=== PATIENT | female | born 1965 | race Caucasian/White ===

== ENCOUNTER → 2020-12-07 09:45 | Outpatient (BNVA) | payer OTHER, SELFPAY | PROVIDERS: PCP Internal Medicine; Visit Provider Physician Assistant ==

== ENCOUNTER → 2020-12-13 07:25 | Outpatient (BNVA) | payer OTHER, SELFPAY | PROVIDERS: PCP Internal Medicine; Visit Provider Surgery ==

== ENCOUNTER 2020-12-15 10:41 | Outpatient (REF) | payer OTHER, SELFPAY ==
--- NOTE | 2020-12-15 10:52 | ECG_ITS ---
Test Reason : OBESITY Blood Pressure : / mmHG Vent. Rate : 073 BPM Atrial Rate : 073 BPM P-R Int : 144 ms QRS Dur : 090 ms QT Int : 424 ms P-R-T Axes : 052 -05 042 degrees QTc Int : 467 ms Normal sinus rhythm Possible Left atrial enlargement Borderline ECG No previous ECGs available Referred By: Gm Mcdowell Electronically Signed By:Washington Wiseman
[2020-12-15 11:43] LABS: MANUAL DIFF FLAG NO
[2020-12-15 11:48] LABS: Basophils Percent Auto 0.3 % (0-2); Eosinophils Absolute Auto 0.1 X10*3/uL (0.0-0.4); Eosinophils Percent Auto 0.6 % (0-4); Hematocrit 44.6 % (37-47); Hemoglobin 14.1 g/dl (12.0-16.0); Imm Gran Abs Auto 0.03 X10*3/uL (0.00-0.03); Imm Gran Pct Auto 0.3 % (0.0-0.4); Lymphocytes Absolute Auto 0.8 X10*3/uL (1.2-4.9); Lymphocytes Percent Auto 8.3 % (20-40); Mean Corpuscular HGB Conc 31.6 g/dl (31.0-35.0); Mean Corpuscular Hemoglobin 28.7 pg (27.0-33.0); Mean Corpuscular Volume 90.8 fL (80-98); Mean Platelet Volume 10.5 fL (9.4-12.3); Monocytes Absolute Auto 0.5 X10*3/uL (0.1-1.2); Monocytes Percent Auto 5.5 % (2-11); Platelet Count 321 X10*3/uL (160-400); Red Blood Count 4.91 X10*6/uL (4.20-5.50); Red Cell Distribution Width 12.7 % (11.0-16.0); White Blood Count 9.4 X10*3/uL (4.8-10.8)
[2020-12-15 11:58] LABS: Estimated Average Glucose 94 mg/dL; Hemoglobin A1c % 4.9 %
[2020-12-15 12:19] LABS: Alanine Aminotransferase 28 U/L (0-31); Albumin Level 4.6 g/dL (3.5-5.0); Alkaline Phosphatase 102 U/L (39-117); Anion Gap 15 (12-20); Aspartate Amino Transferase 21 U/L (5-31); Bilirubin Total 0.7 mg/dL (0.0-1.0); Blood Urea Nitrogen 17 mg/dL (9-16); C Reactive Protein 0.54 mg/dL (< or = 0.50); Calcium 10.2 mg/dL (8.4-10.2); Carbon Dioxide 29 mmol/L (22-29); Chloride 103 mmol/L (96-108); Cholesterol 265 mg/dL; Estimated Glomerular Filt Rate > 60; Glucose Random 78 mg/dL (60-115); HDL Cholesterol 67 mg/dL; Iron 95 mcg/dL (30-160); LDL Cholesterol Calculated 170 mg/dl; Percent Iron Saturation 28 % (15-50); Potassium 4.8 mmol/L (3.3-5.1); Sodium 142 mmol/L (135-145); Total Iron Binding Capacity 336 mcg/dL (228-428); Total Protein 7.5 g/dL (6.5-8.0); Triglycerides 142 mg/dL; Unsaturated Iron Binding 241 ug/dL
[2020-12-15 12:40] LABS: Ferritin 344 ng/mL (10-250); TSH reflex Free T4 2.39 uIU/mL (0.32-4.0); Vitamin D 25-OH Total 27.4 ng/mL (>30)
[2020-12-15 12:46] LABS: Folate 6.4 ng/mL (> or = 4.0); Vitamin B12 1689 pg/mL (200-900)
[2020-12-16 13:42] LABS: H Pylori Breath Test DETECTED (NOT DETECTED)
[2020-12-18 14:56] LABS: Insulin Level Total 15.1 uIU/mL
[2020-12-18 15:11] LABS: Calcium (PTHI) 10.1 mg/dL (8.6-10.4); PTHI 39 pg/mL (14-64)
[2020-12-19 06:30] LABS: Zinc 69 mcg/dL (60-130)
[2020-12-20 19:16] LABS: Vitamin A 56 mcg/dL (38-98)
[2020-12-21 12:52] LABS: Vitamin B1 7 nmol/L (8-30)
== END 2020-12-15 10:42 | disposition home or self-care (01) ==
LOC: HO.LAB 10:41
PROVIDERS: PCP Internal Medicine; Visit Provider Surgery
DX: E66.01 Morbid (severe) obesity due to excess calories (principal); E78.5 Hyperlipidemia, unspecified; I10 Essential (primary) hypertension; J45.909 Unspecified asthma, uncomplicated
CPT/HCPCS: 36415; 80053; 80061; 82306; 82607; 82728; 82746; 83013; 83036; 83525; 83540; 83970; 84425; 84443; 84590; 84630; 85025; 86140; 93005; 99211

== ENCOUNTER 2021-01-11 08:30 | Outpatient (REF) | payer OTHER, SELFPAY ==
--- NOTE | ~2021-01-11 | US_ITS ---
EXAMINATION: US COMPLETE ABDOMEN WITH LIVER ELASTOGRAPHY CLINICAL INFORMATION: Bariatric service evaluation. E66.01. COMPARISON: None. TECHNIQUE: Real-time imaging of the abdominal viscera. Noninvasive ultrasound liver fibrosis assessment is performed using Delroy ElastPQ point quantification shear wave elastography (pSWE) with a C5-2 MHz transducer. Multiple elastography samples are obtained. FINDINGS: PANCREAS: Pancreas obscured by bowel gas and not imaged. ABDOMINAL AORTA: The proximal, middle, and distal aortic segments are normal in caliber. INFERIOR VENA CAVA: Visualized portions are normal. LIVER: The liver is normal in size and smooth in contour. There is increased hepatic parenchymal echogenicity suggesting hepatic steatosis. There is no definite hepatic parenchymal lesion and no intrahepatic ductal dilatation. The right lobe measures 14.5 cm in length. The left lobe measures 11.8 cm in length. Portal flow is towards the liver (hepatopetal). Shear wave liver elastography median stiffness is 1.27 m/s (reference: normal median stiffness is 1.3 m/s or less). IQR/median stiffness to assess sampling precision is 0.13 (reference: good quality data set is IQR/median stiffness of 0.15 or less). GALLBLADDER: Remote cholecystectomy, 1993. COMMON BILE DUCT: Common duct not visualized, obscured by bowel gas. RIGHT KIDNEY: Normal. No hydronephrosis. No renal calculi or focal parenchymal lesions. The kidney measures 11.1 cm in maximum dimension. LEFT KIDNEY: Normal. No hydronephrosis. No renal calculi or focal parenchymal lesions. The kidney measures 11.7 cm in maximum dimension. SPLEEN: Normal. The spleen measures 11.6 cm in maximum dimension. FREE FLUID: None. US/US abdomen comp w elastography IMPRESSION: 1. Increased hepatic parenchymal echogenicity consistent with hepatic steatosis. 2. Liver elastography: Measurements are consistent with a high probability of normal liver stiffness. 3. Prior cholecystectomy. Pancreas and common duct obscured by bowel gas and not imaged. No intrahepatic ductal dilatation. REFERENCE: Society of Radiologists in Ultrasound Liver Stiffness Thresholds (2020): LIVER STIFFNESS THRESHOLDS: *Liver Stiffness equal or less than 1.3 m/s: High probability of being normal. *Liver Stiffness less than 1.7 m/s: In the absence of other known clinical signs, rules out compensated advanced chronic liver disease. *Liver Stiffness 1.7-2.1 m/s: Suggestive of compensated advanced chronic liver disease but need further test for confirmation. *Liver Stiffness over 2.1 m/s: Rules in compensated advanced chronic liver disease. *Liver Stiffness over 2.4 m/s: Suggestive of clinically significant portal hypertension. QUALITY OF DATA SET: *IQR/Median value equal or less than 0.15 implies a quality data set. *IQR/Median value over 0.15 implies a poor quality data set. SIGNIFICANT CHANGE FROM PRIOR EXAM: Significant change if liver stiffness measurement is 10% or greater from prior exam. OTHER CONSIDERATIONS: The stage of liver fibrosis may be overestimated in the setting of acute hepatitis, liver inflammation, elevated liver function tests, hepatic vascular congestion, obstructive cholestasis, non-fasting state, and infiltrative diseases such as amyloidosis and lymphoma. In some patients with NAFLD, the liver stiffness thresholds for compensated advanced chronic liver disease may be lower. In causes other than viral hepatitis and NAFLD, liver stiffness thresholds are not well established.
--- NOTE | ~2021-01-11 | FL_ITS ---
EXAMINATION: FL UPPER GI SERIES CLINICAL INFORMATION: Bariatric service evaluation. E66.01 COMPARISON: None TECHNIQUE: Upper GI series is performed using fluoroscopic evaluation in addition to multiple fluoroscopic spot views. The patient is imaged both upright and prone and using both thick and thin barium sulfate along with effervescent granules. Fluoroscopy time: 1.2 minutes DAP: 17.642 Gycm2 Fluoroscopic spot images: 20 FINDINGS: There is normal esophageal motility. There is no obstruction, stricture, ulceration, or hernia. There is gastroesophageal reflux to mid thoracic esophagus only seen during water siphon test. No spontaneous reflux noted during fluoroscopy. The stomach shows no thickened folds or ulcer crater or outlet obstruction. The duodenal bulb is pliable and without ulcer crater or scarring. The post bulbar duodenum the jejunal mucosal pattern are unremarkable. FL/FL upper GI series IMPRESSION: 1. Gastroesophageal reflux to the mid thoracic esophagus only seen during water siphon test. 2. No hiatal hernia. No ulceration.
--- NOTE | ~2021-01-11 | XR_ITS ---
EXAMINATION: XR CHEST CLINICAL INFORMATION: Morbid (severe) obesity due to excess calories. COMPARISON: None TECHNIQUE: 2 views of the chest were obtained. FINDINGS: The cardiomediastinal silhouette is normal in configuration. No effusions or pneumothoraces are identified. A normal pattern of pulmonary vasculature is noted. No pulmonary consolidation is identified. Presumed cholecystectomy clips are noted within the right upper abdominal quadrant. Mild multilevel anterior endplate osteophytosis is visualized thoracic and lumbar spine is noted. XR/XR chest 2V IMPRESSION: 1. No cardiopulmonary abnormalities. Lungs clear. 2. Cholecystectomy clips in situ. 3. Mild multilevel chronic spondylosis of the visualized thoracolumbar spine.
== END 2021-01-11 08:31 | disposition home or self-care (01) ==
LOC: HO.US 08:30
PROVIDERS: PCP Internal Medicine; Visit Provider Surgery
DX: Z01.818 Encounter for other preprocedural examination (principal); E66.01 Morbid (severe) obesity due to excess calories; K21.9 Gastro-esophageal reflux disease without esophagitis; J45.909 Unspecified asthma, uncomplicated; I10 Essential (primary) hypertension; E78.5 Hyperlipidemia, unspecified
CPT/HCPCS: 71046; 74240; 76705; 76981

== ENCOUNTER 2021-01-15 08:02 | Outpatient (REF) | payer OTHER, SELFPAY ==
--- NOTE | 2021-01-15 10:42 | PFT_ITS ---
INDICATION: Asthma. SPIROMETRY: The FEV1 to FVC of 81% with an FEV1 of 2.86 L, which is 97% predicted, and an FVC of 3.52 L, which is 93% predicted. No significant response to bronchodilators noted. Maximum voluntary ventilation 116% predicted. LUNG VOLUMES: Total lung capacity 93% predicted with an expiratory reserve volume of 27% predicted, likely secondary to an elevated BMI. DIFFUSION CAPACITY: DLCO 72% predicted. COMPARISONS: None. INTERPRETATION: No obstructive nor restrictive ventilatory defects identified. No significant response to bronchodilators noted. Normal maximum voluntary ventilation. Lung volumes are within normal limits. The patient does have a mild diffusion impairment, therefore need to correct for hemoglobin. If asthma is in the differential, methacholine challenge may be helpful in assessing for hyper-reactive airways, otherwise clinical correlation warranted. MD BRUCE Zhu/MODL / [phone]
== END 2021-01-15 08:03 | disposition home or self-care (01) ==
LOC: HO.RESP 08:02
PROVIDERS: Visit Provider Surgery
DX: J45.41 Moderate persistent asthma with (acute) exacerbation (principal)
CPT/HCPCS: 94060; 94727; 94729

== ENCOUNTER 2021-01-24 07:53 | Outpatient (REF) | payer OTHER, SELFPAY ==
[2021-01-26 14:07] LABS: H Pylori Breath Test NOT DETECTED (NOT DETECTED)
== END 2021-01-24 07:54 | disposition home or self-care (01) ==
LOC: CF 07:53
PROVIDERS: Physician Assistant; Visit Provider Surgery
DX: E66.01 Morbid (severe) obesity due to excess calories (principal); Z71.3 Dietary counseling and surveillance; Z11.3 Encounter for screening for infections with a predominantly sexual mode of transmission
CPT/HCPCS: 83013; 99211

== ENCOUNTER → 2021-01-25 08:05 | Outpatient (BNVA) | payer OTHER, SELFPAY | PROVIDERS: PCP Internal Medicine; Visit Provider Dietitian, Registered | DX: E66.01 Morbid (severe) obesity due to excess calories (principal) | CPT/HCPCS: 97802 ==

== ENCOUNTER → 2021-01-30 09:28 | Outpatient (REF) | payer OTHER, SELFPAY ==
--- NOTE | 2021-01-30 09:31 | CA_ITS ---
Transthoracic Echocardiogram Patient (Last, First, Middle): Charline Stallings A Gender: Female Date of : 1965 Age: 55 Procedure Date: 01/30/2021 Procedure Type: Transthoracic Echocardiogram Location: OP Height: 170.18 cm Weight: 140.62 kg BSA: 2.44 m2 Heart Rate: bpm BP: 130 / 80 mmHg Senior Manager: Referring MD: Gm Mcdowell MD Symptoms: I10 HTN, Z01.818 PRE OP Study Quality: Good ECG Rhythm: Sinus Conclusions: - 1. Normal LV systolic function mild LVH with moderate asymmetric septal hypertrophy without obstructive physiology with grade 1 diastolic dysfunction 2. Normal cardiac valvular Doppler 3. Normal RV systolic pressure 4. No gross pericardial effusion Findings Left Ventricle Normal left ventricular size and systolic function. There is mildly increased left ventricular wall thickness. The visually estimated ejection fraction is between 60-65%. There is no dynamic left ventricular outflow tract obstruction. There is no systolic anterior motion of the mitral valve. Spectral Doppler is indicative of an impaired relaxation filling pattern. E/E prime ratio is <8, consistent with normal filling pressures. Evidence suggests grade I (mild) diastolic dysfunction. There is moderate septal asymmetric hypertrophy. Right Ventricle Normal right ventricular cavity size and systolic function. Atria The left atrium is normal in size. The right atrium is normal in size. Aortic Valve The aortic valve structure and function is likely normal. There is no aortic valve stenosis. There is no aortic valve regurgitation. Mitral Valve Normal mitral valve structure and function. There is trace mitral valve regurgitation. There is no mitral valve stenosis. Pulmonic Valve The pulmonic valve is likely normal. There is trace to mild pulmonic valve regurgitation. Tricuspid Valve Normal tricuspid valve structure. There is trace tricuspid valve regurgitation. The right ventricular systolic pressure is normal. The right ventricular systolic pressure is 16 mmHg. Normal right atrial pressure. There is no evidence of pulmonary hypertension. Great Vessels All visible segments of the aorta are normal in size. The pulmonary artery was not well visualized. Venous The inferior vena cava is normal in size and collapses greater than 50% with inspiration. Pericardium/Pleural There is no evidence of pericardial effusion. Prior Study Comparison No prior study available for comparison. Measurements 2D Linear Measurements IVSd: 2.56 0.6-0.9/0.6-1.0 cm LVIDd: 3.64 3.9-5.3/4.2-5.9 cm LVIDd Index: 1.49 2.4-3.2/2.2-3.1 cm/m2 LVIDs: 2.19 2.0-3.6 cm LVPWd: 1.10 0.7-1.1 cm Ao Root: 3.40 2.1-3.5 cm LA Diam: 4.20 2.7-3.8/3.0-4.0 cm LAIDs Index: 1.72 1.5-2.3 cm/m2 LV Mass: 336.41 67-162/88-224 g LV Mass Index: 137.87 43-95/49-115 g/m2 LVOT Diam: 2.20 3.0+(-)1.3 cm Mitral Valve MV Pk E: 0.48 MV PK A: 0.85 MV Decel Time: 163.00 E/A: 0.60 E'Lateral: 7.72 E'Medial: 6.09 E/E' Med: 7.90 E/E' Lat: 6.30 PHT: 48.00 MVA PHT: 4.58 Decel [place]: 2.96 Aortic Valve AoV Pk Blu: 1.46 AoV Mn Blu: 0.99 AoV VTI: 0.25 AoV Pk Grad: 9.00 Aov Mn Grad: 4.00 STEFANY Cont.VTI: 3.18 LVOT LVOT Pk Blu: 1.17 LVOT Mn Blu: 0.72 LVOT VTI: 0.21 LVOT Pk Grad: 5.00 LVOT Mn Grad: 3.00 LVOT Diam: 2.20 LVOT Area: 3.80 Diastolic Function MV Pk E: 0.48 MV Pk A: 0.85 E/A: 0.60 E'Medial: 6.09 E/E' Med: 7.90 E' Laterial: 7.72 E/E' Lat: 6.30 Tricuspid Valve TR Pk Blu: 1.79 TR Pk Grad: 13.00 RA Press: 3.00 RVSP: 16.00 Great Vessels Aorta Ao Root-2D: 3.40 2.0-3.7 cm Ao Asc: 3.50 2.1-3.4 cm Pulmonary Valve PV Pk Blu: 1.06 Peak PV Grad: 4.00 Updated in Other Vendor System with Status of Final Vj Bianchi MD electronically signed on 01/30/2021 12:10:10 PM with status of Final
== END ==
LOC: HO.CARD 09:28
PROVIDERS: PCP Internal Medicine; Visit Provider Surgery
DX: Z01.818 Encounter for other preprocedural examination (principal); I10 Essential (primary) hypertension
CPT/HCPCS: 93306

== ENCOUNTER → 2021-02-02 13:17 | Outpatient (BNVA) | payer OTHER, SELFPAY | PROVIDERS: PCP Internal Medicine; Visit Provider Physician Assistant ==

== ENCOUNTER → 2021-02-07 07:05 | Outpatient (BNVA) | payer OTHER, SELFPAY | PROVIDERS: PCP Internal Medicine; Visit Provider Surgery ==

== ENCOUNTER 2021-02-13 10:36 | Inpatient (IN) | payer OTHER, SELFPAY ==
[2021-02-08 11:04] VITALS: BP 145/95; PULSE 91; O2SAT 97; BMI 47.6
[2021-02-08 11:10] LABS: MANUAL DIFF FLAG NO
[2021-02-08 11:16] LABS: Basophils Absolute Auto 0.1 X10*3/uL (0.0-0.2); Basophils Percent Auto 0.6 % (0-2); Eosinophils Absolute Auto 0.1 X10*3/uL (0.0-0.4); Eosinophils Percent Auto 1.4 % (0-4); Hematocrit 45.8 % (37-47); Imm Gran Abs Auto 0.03 X10*3/uL (0.00-0.03); Imm Gran Pct Auto 0.4 % (0.0-0.4); Lymphocytes Absolute Auto 0.8 X10*3/uL (1.2-4.9); Lymphocytes Percent Auto 9.7 % (20-40); Mean Corpuscular HGB Conc 32.8 g/dl (31.0-35.0); Mean Corpuscular Hemoglobin 28.3 pg (27.0-33.0); Mean Corpuscular Volume 86.4 fL (80-98); Mean Platelet Volume 10.8 fL (9.4-12.3); Monocytes Absolute Auto 0.5 X10*3/uL (0.1-1.2); Monocytes Percent Auto 6.5 % (2-11); Neutrophils Absolute Auto 6.6 X10*3/uL (2.0-8.3); Neutrophils Percent Auto 81.4 % (45-73); Platelet Count 350 X10*3/uL (160-400); Red Cell Distribution Width 12.7 % (11.0-16.0); White Blood Count 8.1 X10*3/uL (4.8-10.8)
[2021-02-08 11:28] LABS: INTERNATIONAL NORM RATIO 1.2 (0.9-1.1); Prothrombin Time 13.3 SEC (9.9-13.0)
--- NOTE | 2021-02-08 11:39 | P.CONAN_ITS ---
Documented by User: Lotus Bobo NP 02/12/21 10:39 HPI - Anesthesia Eval Consult details Narrative: 55yo F for Gastrectomy Sleeve, EGD, Poss Diaphragmatic Hernia, Poss Ventral Hernia, Poss open PMFSH Active Problems Active Problems: All Active Problems (Updated 02/08/21 @ 11:23 by Pamella Bray, SCOTT) Current moderate episode of major depressive disorder (Acute) Left atrial enlargement (Acute) Vitamin B1 deficiency (Acute) Vitamin D deficiency (Acute) H. pylori infection (Acute) Constipation (Acute) Morbid obesity (Acute) Asthma (Acute) Hypertension (Acute) DJD (degenerative joint disease) (Acute) Depression (Acute) Hyperlipidemia (Acute) Past Medical History Medical History (Updated 02/08/21 @ 11:23 by Pamella Bray RN) Asthma Depression DJD (degenerative joint disease) Hyperlipidemia Hypertension Morbid obesity Family History Family History (System 12/15/20 @ 11:28 by Erin Lara) Mother No problems noted. Father No problems noted. Brother No problems noted. Brother No problems noted. Brother Diabetes Sister No problems noted. Sister No problems noted. Sister No problems noted. Sister No problems noted. Son No problems noted. Daughter No problems noted. Surgical History Surgical History (Updated 02/08/21 @ 11:33 by Pamella Bray RN) Hx of cholecystectomy Hx of colonoscopy Hx of LASIK Hx of wisdom tooth extraction History of Problems with Anesthesia: No Social History Social History (System 12/15/20 @ 11:28 by Erin Lara) Are you a primary health care coordinator to a significant other at home: No Do you presently have visiting nurse or other home services: No Alcohol intake: former Patient Tobacco Use Status: Never used Tobacco Narrative Narrative: No recent illness No CP/SOB with exercise at gym. Limited only to knee pain. Meds Allergies Allergy/AdvReac Type Severity Reaction Status Date / Time No Known Allergies Allergy Verified 02/13/21 06:15 [No Known Allergies*] Home Medications Medication Instructions Recorded Confirmed Last Taken Type albuterol sulfate 90 mcg/actuation 2 puff INHALATION Q6H PRN 12/07/20 02/08/21 Unknown History aerosol inhaler ascorbic acid (vitamin C) 500 mg mg PO 12/07/20 02/07/21 Unknown History capsule citalopram 20 mg tablet 20 mg PO DAILY 12/07/20 02/07/21 Unknown History ferrous sulfate 325 mg (65 mg 325 mg PO TID 12/07/20 02/07/21 Unknown History iron) tablet (FeroSul) vitamin B complex (B 1 tab PO DAILY 12/07/20 02/07/21 Unknown History Complex-Vitamin B12) acetaminophen 650 mg 650 mg PO Q8H PRN 02/08/21 02/08/21 Unknown History tablet,extended release Exam Exam Date and Time: February 08, 2021 1139 Height,Weight and Vital Signs: Height 5 ft 7 in Weight 138 kg Last Vital Signs Pulse 91 02/08/21 11:04 BP 145/95 H 02/08/21 11:04 Pulse Ox 97 02/08/21 11:04 Pertinent Lab Results Pertinent Lab Results: Laboratory Tests 02/08/21 02/08/21 10:49 10:49 WBC 8.1 RBC 5.30 Hgb 15.0 Hct 45.8 MCV 86.4 MCH 28.3 MCHC 32.8 RDW 12.7 Plt Count 350 MPV 10.8 Immature Gran % (Auto) 0.4 Neut % (Auto) 81.4 H Lymph % (Auto) 9.7 L [place] % (Auto) 6.5 Eos % (Auto) 1.4 Baso % (Auto) 0.6 Lymph # (Auto) 0.8 L [place] # (Auto) 0.5 Eos # (Auto) 0.1 Baso # (Auto) 0.1 Abs Immat Gran (auto) 0.03 Absolute Neuts (auto) 6.6 Absolute Nucleated RBC 0.000 Nucleated RBC % (auto) 0.0 PT 13.3 H INR 1.2 H APTT 39.0 H Narrative Narrative: EKG 11/2020 Vent. Rate : 073 BPM ? ? Atrial Rate : 073 BPM ?? P-R Int : 144 ms? QRS Dur : 090 ms ? ? QT Int : 424 ms ? ? ? P-R-T Axes : 052 -05 042 degrees ?? QTc Int : 467 ms ? Normal sinus rhythm Possible Left atrial enlargement Borderline ECG No previous ECGs available ECHO 12/2020 Conclusions: - ? 1. Normal LV systolic function mild LVH with moderate? asymmetric septal hypertrophy without obstructive physiology with grade 1 diastolic dysfunction? 2. Normal cardiac valvular Doppler ? 3. Normal RV systolic pressure ? 4. No gross pericardial effusion ? PFT 12/2020 INTERPRETATION:? No obstructive nor restrictive ventilatory defects identified.? No significant response to bronchodilators noted.? Normal maximum voluntary ventilation.? Lung volumes are within normal limits.? The patient does have a mild diffusion impairment, therefore need to correct for hemoglobin.? If asthma is in the differential, methacholine challenge may be helpful in assessing for hyper-reactive airways, otherwise clinical correlation warranted. XR chest 2V 12/2020 IMPRESSION: ? 1. No cardiopulmonary abnormalities. Lungs clear. 2. Cholecystectomy clips in situ. 3. Mild multilevel chronic spondylosis of the visualized thoracolumbar spine. Airway Neck ROM: Full Loose/Missing/Broken Teeth: Yes (Molars missing) Heart: RRR Lungs: CTAB Assessment and Plan Assessment Anesthesia Assessment: Anesthesia Plan Discussed and PAT Visit Final Anesthetic Review History of Problems with Anesthesia: No Documented by User: Gary Duenas MD 02/13/21 09:52 [facility] Past Medical History Medical History (Updated 02/08/21 @ 11:23 by Pamella Bray RN) Asthma Depression DJD (degenerative joint disease) Hyperlipidemia Hypertension Morbid obesity Family History Family History (System 12/15/20 @ 11:28 by Erin Lara) Mother No problems noted. Father No problems noted. Brother No problems noted. Brother No problems noted. Brother Diabetes Sister No problems noted. Sister No problems noted. Sister No problems noted. Sister No problems noted. Son No problems noted. Daughter No problems noted. Family history of problems with anesthesia: No Surgical History Surgical History (Updated 02/08/21 @ 11:33 by Pamella Katarina, RN) Hx of cholecystectomy Hx of colonoscopy Hx of LASIK Hx of wisdom tooth extraction Social History Social History (System 12/15/20 @ 11:28 by Erin Lara) Are you a primary health care coordinator to a significant other at home: No Do you presently have visiting nurse or other home services: No Alcohol intake: former Patient Tobacco Use Status: Never used Tobacco Meds Allergies Allergy/AdvReac Type Severity Reaction Status Date / Time No Known Allergies Allergy Verified 02/13/21 06:15 [No Known Allergies*] Home Medications Medication Instructions Recorded Confirmed Last Taken Type albuterol sulfate 90 mcg/actuation 2 puff INHALATION Q6H PRN 12/07/20 02/08/21 Unknown History aerosol inhaler ascorbic acid (vitamin C) 500 mg mg PO 12/07/20 02/07/21 Unknown History capsule citalopram 20 mg tablet 20 mg PO DAILY 12/07/20 02/07/21 Unknown History ferrous sulfate 325 mg (65 mg 325 mg PO TID 12/07/20 02/07/21 Unknown History iron) tablet (FeroSul) vitamin B complex (B 1 tab PO DAILY 12/07/20 02/07/21 Unknown History Complex-Vitamin B12) acetaminophen 650 mg 650 mg PO Q8H PRN 02/08/21 02/08/21 Unknown History tablet,extended release Exam Airway Mallampati Class: I TM Dist: >3cm Assessment and Plan Assessment Anesthesia Assessment: Chart Reviewed Final Anesthetic Review Family History of Problems with Anesthesia: No NPO: Yes ASA Class: III Final Preanesthetic Review: No Changes in Pt Med Stat, Meds/Allgs Chart Reviewed, Consent Obtained/Reviewed and Anes Risks/Benef Reviewed Patient Risk: High Procedure Risk: Intermediate Anesthetic Plan Anesthetic Plan: GA Disposition: Standard PACU
[2021-02-08 11:55] LABS: TSH reflex Free T4 2.11 uIU/mL (0.32-4.0)
[2021-02-08 12:00] LABS: Alanine Aminotransferase 14 U/L (0-31); Albumin Level 4.7 g/dL (3.5-5.0); Alkaline Phosphatase 97 U/L (39-117); Anion Gap 17 (12-20); Aspartate Amino Transferase 18 U/L (5-31); Bilirubin Total 0.6 mg/dL (0.0-1.0); Blood Urea Nitrogen 22 mg/dL (9-16); C Reactive Protein 2.15 mg/dL (< or = 0.50); Carbon Dioxide 27 mmol/L (22-29); Chloride 100 mmol/L (96-108); Cholesterol 202 mg/dL; Creatinine Clr Calc Pharmacy 98.1; Estimated Glomerular Filt Rate > 60; Glucose Random 101 mg/dL (60-115); HDL Cholesterol 49 mg/dL; LDL Cholesterol Calculated 129 mg/dl; Sodium 140 mmol/L (135-145); Total Protein 7.6 g/dL (6.5-8.0); Triglycerides 120 mg/dL
[2021-02-08 12:03] LABS: Estimated Average Glucose 103 mg/dL; Hemoglobin A1c % 5.2 %
[2021-02-08 12:16] LABS: Calcium 10.9 mg/dL (8.4-10.2)
[2021-02-10 05:07] LABS: Insulin Level Total 11.9 uIU/mL
--- NOTE | 2021-02-12 19:09 | MHC.SHP ---
Pre-Procedural Eval Section A Date of Service: 02/12/21 The patient is an INPATIENT: Yes Changes since office visit: Yes Cold of Flu in the past 2 weeks The History & Physical has been completed within 30 days and I have reviewed it.: No Section B Chief Complaint: Morbid Severe Obesity Relevant Family History (Specify if Yes): Yes Relevant Social History: None Present Medications: see Short Stay Collaborative assessment Medical History: No relevant PMH History of Previous Operations: No relevant previous surgery Allergies: Allergies Allergy/AdvReac Type Severity Reaction Status Date / Time No Known Allergies Allergy Verified 02/08/21 11:22 [No Known Allergies*] Review of Systems Sugical H&P ROS: Negative: Constitution, Cardiovascular, Respiratory, Neurological, Psychiatric, Hem-Onc, Allergic/Immunologic, Gastrointestinal, Genitourinary, Musculoskeletal, Integumentary, Endocrine and Eyes/Ears/Nose/Throat Exam Surgical H&P Exam: Normal: HEENT, Normal: Heart, Normal: Lungs, Normal: Extremities, Normal: Abdomen, Normal: Skin and Normal: Neurological Plan Diagnosis/Plan: Unchanged I have reviewed the history and physical and performed a pertinent physical examination on my patient. No changes have occurred unless specified.
[2021-02-13] VITALS (17 sets, daily range): BP systolic 132–180; BP diastolic 52–99; PULSE 54–99; RESP 12–20; TEMP 36.8–37.4; O2SAT 95–100; BMI 47.6
[2021-02-13 06:57] LABS: COVID-19 Test Negative (Negative); IDNOW Serial# 9DD0AD1C
[2021-02-13] MEDS: Lactated Ringers 1,000 ML 100 ML IVCONT ×2 (07:00→07:02)
--- NOTE | 2021-02-13 10:28 | P.BOP_ITS ---
Brief Operative Note Date of Service: 02/13/21 Pre-op diagnosis: Morbid obesity and comorbidities (see below) Post-op diagnosis: same Procedure: INITIAL PATIENT BMI ON PRESENTATION AT OUR OFFICE: 52.6 kg/m2 LAST BMI BEFORE SURGERY: 48.7 kg/m2 COMORBIDITIES: asthma, hypertension, hyperlipidemia, depression, DJD, GERD, liver steatosis, liver fibrosis, LVH, grade I diastolic dysfunction The patient participated in an intensive weekly lifestyle ?intervention and exercise program during which the patient ?has lost between the initial office visit and the last preoperative visit 28.6 lbs, or 8.53% of initial actual body weight. The patient met the BMI-criteria for bariatric surgery based on the BMI on initial presentation. The patient should not be penalized for achieving such weight loss because ?it is not sustainable long-term without surgical intervention and it was achieved in preparation for bariatric surgery ?under my direction and based on my published research ([email or web address] and? [email or web address] ) ?that a 10% preoperative weight loss improves long-term weight loss after surgery and reduces perioperative complications.? Insurance carriers such as [facility] have endorsed my recommendations ?and have included in their policies criteria to include a 10% preoperative weight loss requirement. PROCEDURE: Esophago-gastroscopy, laparoscopic sleeve gastrectomy and laparoscopic gastropexy INDICATIONS: This is a 55 year-old female who was electively scheduled for laparoscopic, possibly open sleeve gastrectomy. The risks and complications of the procedure were discussed with the patient in advance, particularly the possibility of ; pulmonary embolism; staple line leak; bleeding; GERD; cardiac, pulmonary, or renal complications; as well as long-term problems such as insufficient weight loss, vitamin deficiency, strictures, or ulcers. The patient understood all the risks, and was in agreement to proceed with surgery. DESCRIPTION OF PROCEDURE: After informed consent was obtained from the patient, the patient was given preoperative antibiotics, and was transferred to the operating room. After successful induction of general anesthesia, pneumatic compressive devices were placed on both lower extremities. An upper endoscopy was performed next. The oropharynx and esophagus appeared to be within normal limits. There was no diaphragmatic hernia present consistent with the findings of the preoperative upper GI. The stomach was entered. Then after all fluid and air were suctioned and the stomach was fully decompressed, the scope was withdrawn and secured in the mid esophagus. The patient was then prepped and draped in the usual sterile manner, and abdominal access was established at the right upper quadrant with the Joyce technique. A 12 mm blunt port was inserted, and the abdomen was insufflated with CO2 to a pressure of 15 mmHg. Under direct visualization, additional ports were placed, specifically two 5 mm Versi-step ports to the left upper quadrant, and a 5 mm Versi-Step port to the right upper quadrant. 1% lidocaine plain was used to infiltrate all port sites as well as all fascia defects. Following that, the patient was placed in a steep reverse Trendelenburg position. An additional 5 mm port was placed to the right flank for the Mediflex retractor that was used to retract the left lobe of the liver. The gastro-esophageal fat pad was opened with the ultrasonic device (Thunderbeat, Olympus) and the anterior esophagus and hiatus were exposed. The angle of His was opened with the ultrasonic device the fundus of the stomach from any diaphragmatic and splenic attachments. I then opened the gastrocolic ligament between the transverse colon and the greater curvature of the stomach with the ultrasonic device to enter the lesser sac and facilitate the ligation of the short gastric vessels. I started at a mid-point along the greater curvature and using the Thunderbeat, all short gastric vessels were divided all the way to the angle of His until the left tania was completely dissected at its entirety. I then divided the gastro-colic ligament distally to a distance of about 3-4 cm proximal to the esophagus. The stomach was then divided transversely with one Endo VERÓNICA-45 purple, two VERÓNICA 45 orange and three VERÓNICA-60 articulating orange loads using the AEON stapler and loads. Every effort was made that the gastric sleeve had a tubular shape and an even caliber throughout. Once the sleeve resection was completed, the staple line of the gastric sleeve was reinforced with Hemoclips. The resected stomach was retrieved without difficulty from the Joyce port. A gastropexy was then performed in order to prevent postoperative GERD and partial gastric volvulus. Several interrupted 2.0 Surgidac sutures were placed between the sleeve's staple line and the previously divided greater omentum and gastro-colic ligament using the Endo-Stitch device. ?An upper endoscopy was performed. There was no narrowing at the GE junction. The scope was easily advanced all the way to the pylorus which was clearly visualized. There was no narrowing anywhere and the sleeve's caliber was even throughout. The sleeve's staple line was inspected and there was no evidence of ischemia, bleeding or dehiscence. At that point the gastroscope was withdrawn from the patient?s mouth while we were decompressing the bowel and the stomach from any remaining air. I looked into the lesser sac to see how the sleeve was situating and it was situating well. There was no bleeding from the staple line, spleen, or short gastric vessels. The Mediflex retractor was removed, and the undersurface of the liver was inspected and there was no bleeding. The patient was placed in supine position. I closed the fascial defect of the 12 mm port site with a figure of eight #1 Polysorb suture. Then 100 cc 0.25 % Marcaine plain with 10 mg of Dexamethasone were used to infiltrate the fascial closure as well as all skin incisions. At this point, the abdomen was deflated, all ports were removed under direct vision, and no bleeding was noted from any of the port sites. The skin incisions were irrigated with saline and were closed with 4-0 absorbable monofilament sutures. Steri-Strips and OpSites were used to cover all incisions. The patient was extubated and was transferred in stable condition to the recovery room for further care. I was present and performed all montgomery parts of the procedure. Avni Segundo was the certified registered dental assistant. There were no residents to assist with this case. Carlo Mcdowell MD, PhD, FACS Surgeon: Gm Mcdowell MD Anesthesia: GETA, local and other (TAP block) Was an Mushroom Picker used for this Procedure?: Yes Mushroom Picker: Faina Segundo Estimated blood loss (mL): 10 IV fluids (mL): 2,500 Urine output (mL): 0 (No Paz to gravity) Pathology: other (Stomach) Condition: stable Disposition: PACU
--- NOTE | 2021-02-13 10:33 | PM.PNGS ---
Subjective Subjective Date of Service: 02/14/21 Interval history: Patient has mild incisional pain, but was able to ambulate and use the incentive spirometer. She is tolerating phase 1 bariatric diet Physical Exam Vital Signs: Vital Signs: Last Vital Signs Temp 98.8 F 02/13/21 06:38 Pulse 87 02/13/21 06:38 Resp 16 02/13/21 06:38 BP 150/90 H 02/13/21 06:38 Pulse Ox 98 02/13/21 06:38 Body Mass Index 47.6 GI: Inspection: Yes normal to inspection and Yes incision (clean, dry and intact) Extrem: Right lower extremity: normal to inspection (no calf tenderness) Left lower extremity: normal to inspection (no calf tenderness) Procedures Date of Service Date of Service: 02/14/21 Progress Note: A&P Assessment and plan (1) S/P laparoscopic sleeve gastrectomy: Status: Acute Assessment and Plan: s/p laparoscopic sleeve gastrectomy and gastropexy Doing well Check am labs. If OK, will discharge home? (2) Morbid obesity: Status: Acute (3) Asthma: Status: Acute (4) Hypertension: Status: Acute (5) DJD (degenerative joint disease): Status: Acute (6) Depression: Status: Acute (7) Hyperlipidemia: Status: Acute (8) GERD (gastroesophageal reflux disease): Status: Acute (9) Steatosis, liver: Status: Acute (10) Liver fibrosis: Status: Acute (11) Left ventricular hypertrophy: Status: Acute (12) Diastolic dysfunction, left ventricle: Status: Acute Fall Risk Details Current Medications: Current Medications Generic Name Dose Route Start Last Admin Trade Name Freq PRN Reason Stop Dose Admin Albuterol Sulfate 2.5 mg 02/13/21 06:12 Albuterol Sulfate (0.083%) 2.5 Mg/3 Ml Vial.Neb INHALE ONCE PRN Shortness of Breath/Wheezing Hydromorphone HCl 0.5 mg 02/13/21 09:52 Hydromorphone Hcl 0.5 Mg/0.5 Ml Syringe IVPUSH Q5M PRN Pain, Severe (Pain Scale 7-10) Protocol Lactated Ringer's 1,000 mls @ 100 mls/hr 02/13/21 06:00 02/13/21 07:00 Lr IVCONT 100 mls/hr .Q10H ASHLY Administration Lactated Ringer's 1,000 mls @ 100 mls/hr 02/13/21 06:15 02/13/21 07:02 Lr IVCONT 100 mls/hr .Q10H ASHLY Administration Promethazine HCl 12.5 mg/ 50.5 mls @ 202 mls/hr 02/13/21 09:52 Sodium Chloride IV ONCE PRN Nausea and Vomiting Ondansetron HCl 4 mg 02/13/21 09:52 Ondansetron Hcl 4 Mg/2 Ml Vial IVPUSH ONCE PRN Nausea and Vomiting Time Spent With Patient Time: Total time spent is greater than 50% in coordination of care (as documented) at patient's floor/unit and/or counseling patient: Time with patient: less than 15 minutes Quality Stroke Does the patient have a stroke diagnosis?: No VTE Prior VTE?: No VTE Risk Level:: Surgical - moderate VTE Device Contraindication: N/A - Device Ordered VTE Drug Contraindication: Treatment Not Indicated
--- NOTE | 2021-02-13 10:43 | PM.DS ---
DS: Providers Provider Date of Service: 02/14/21 Primary care physician: Lynsey Nagel MD DS: Diagnosis Discharge Diagnosis (1) S/P laparoscopic sleeve gastrectomy: Status: Acute (2) Morbid obesity: Status: Acute (3) Asthma: Status: Acute (4) Hypertension: Status: Acute (5) DJD (degenerative joint disease): Status: Acute (6) Depression: Status: Acute (7) Hyperlipidemia: Status: Acute (8) GERD (gastroesophageal reflux disease): Status: Acute (9) Steatosis, liver: Status: Acute (10) Liver fibrosis: Status: Acute (11) Left ventricular hypertrophy: Status: Acute (12) Diastolic dysfunction, left ventricle: Status: Acute DS: Summary Hospital Course Hospital Course: ADMITTING DIAGNOSIS: morbid obesity, asthma, hyperlipidemia, hypertension, depression ? DISCHARGE DIAGNOSIS: same, s/p laparoscopic sleeve gastrectomy ? PAST SURGICAL HISTORY: cholecystectomy ? PROCEDURE: upper endoscopy, laparoscopic sleeve gastrectomy ? DISCHARGE SUMMARY: ? History of Present Illness: ? The patient is a??55?year-old woman with a BMI of???52.4?kg/m2 and associated co-morbidities as described above. The patient had extensive work-up,lost??25.6 lbs preoperatively and was electively scheduled for laparoscopic, possible open sleeve gastrectomy and gastropexy. Risks and complications of the surgery were discussed with the patient in advance, particularly the possibility of , pulmonary embolism, anastomotic leak, bleeding, bowel injury, GERD, cardiac, renal or pulmonary complications. The patient understood all the risks and was in agreement with the surgical plan. ? Hospital Course: ? The patient underwent an uneventful laparoscopic sleeve gastrectomy with gastropexy on the day of admission. Postoperatively, the patient was transferred to the surgical floor. The patient received IV Acetaminophen and IV dilaudid for pain control. Patient was started on bariatric phase 1 diet POD #0. On postoperative day one, the patient was feeling well without nausea, vomiting, fevers, or tachycardia. The patient had some mild incisional pain and the abdomen was soft. ? On the morning of postoperative day one, the patient was continued on 1 ounce of water or ice every half hour. During the day, the patient did fairly well, having some incisional pain, but able to ambulate adequately and to tolerate liquids well. ? Since the patient is doing well, we decided that the patient was ready to be discharged. The patient was given instructions to follow-up with me next week and to call my office for any fever over 101, persistent abdominal pain, nausea, vomiting, GERD, symptoms of DVT such as calf tenderness, or leg swelling, or pulmonary embolism such as chest pain or shortness of breath. The patient was also instructed to drink 40-60 ounces of liquids per day using the 1-ounce cups. The patient had been given prescriptions for Tylenol for pain, Zofran prn for nausea, and pantoprazole and carafate previously. The patient was encouraged to ambulate and use the incentive spirometer. The patient was allowed to shower, but no baths, and encouraged to stay active at home. All of these instructions were given to the patient personally. All questions were answered and the patient understood all instructions, the instructions were also given to the patient in print. Time Spent with Patient Time attestation: Total time spent providing and/or coordinating discharge services: Discharge coordination time: Less than 30 minutes Quality: Stroke Does the patient have a stroke diagnosis?: No Physical Exam Vital Signs: Vital Signs: Last Vital Signs Temp 98.2 F 02/13/21 10:25 Pulse 89 02/13/21 10:35 Resp 14 02/13/21 10:35 BP 157/87 H 02/13/21 10:35 Pulse Ox 97 02/13/21 10:35 Body Mass Index 47.6 DS: Data Data Completed and Pending Pending studies at discharge: Pending at discharge 02/13/21 09:49 Surgical [PTH] Routine Labs on day of discharge: Laboratory Results - last 24 hr 02/13/21 06:15 COVID-19 ([facility]) Negative COVID-19 Clin Com See Note Discharge Plan Discharge Patient Disposition: Home, Self-Care Discharge Diagnosis: s/p sleeve gastrectomy Referrals: Lynsey Nagel MD [Primary Care Provider] - 1 Week Discharge Medications: Continued docusate sodium [Colace] 100 mg capsule 100 mg PO DAILY Qty: 30 RF: 2 acetaminophen [Tylenol Arthritis] 650 mg Tablet Extended Release 650 mg PO Q8H PRN (Reason: Pain) RF: 0 pantoprazole 40 mg tablet,delayed release (DR/EC) 40 mg PO DAILY Qty: 30 RF: 2 sucralfate 100 mg/mL suspension 10 ml PO BID Qty: 400 RF: 2 ondansetron HCl [Zofran] 4 mg tablet 4 mg PO Q12H Qty: 20 RF: 0 lisinopril 10 mg tablet 10 mg PO DAILY Qty: 30 RF: 2 citalopram 20 mg tablet 20 mg PO DAILY RF: 0 albuterol sulfate 90 mcg/actuation HFA aerosol inhaler 2 puff inhalation Q6H PRN (Reason: Shortness Of Breath Or Wheezing) RF: 0 Discontinued thiamine HCl (vitamin B1) 100 mg tablet 100 mg PO DAILY Qty: 30 RF: 1 cholecalciferol (vitamin D3) 125 mcg (5,000 unit) capsule 125 mcg PO DAILY Qty: 30 RF: 0 polyethylene glycol 3350 [Miralax] 17 gram powder in packet 17 g PO DAILY Qty: 14 RF: 0 hydrochlorothiazide 12.5 mg tablet 12.5 mg PO DAILY Qty: 30 RF: 2 ascorbic acid (vitamin C) 500 mg capsule PO RF: 0 vitamin B complex [B Complex-Vitamin B12] Tablet 1 tab PO DAILY RF: 0 ferrous sulfate [FeroSul] 325 mg (65 mg iron) tablet 325 mg PO TID RF: 0 Discharge Orders: Discharge Order (Routine); Ordered 02/14/21 Ordered By: Earl Herbert Diet: other Activity on Discharge: No heavy lifting Stand Alone Forms: Patient Portal Discharge page Care Plan Goals: weight loss Health Concerns: morbid obesity Plan of Treatment: No tub baths, sex or returning to work until discussed at first post op appointment. No exercise, alcohol, tobacco or illegal drug use. Continue to use incentive spirometer hourly while awake. Walk in home for 5- 10 minutes every 2 hours during the first week. Continue phase 3 diet until first post op appointment. Follow all instructions in the bariatric handbook and call with any questions.Discharge Instructions 1. Please call your doctor or come back to the emergency room should any new symptoms arise. 2. You will receive a courtesy call from [facility] 24-48 hours after discharge. 3. Activity: abstain from alcohol, practice limited stair climbing, no bending, no driving, no exercise, no illicit substances, no lifting, no sex, no tub bath, no work. 4. Diet: continue as discussed with Dr. Mcdowell. 5. Dressing Change/Wound Care: Your incision is covered by surgical glue. If the area is tender, you may apply an ice pack for short intervals (no more than 20 minutes on, followed by at least 20 minutes off). Do not apply heat. Do not use creams, lotions, or topical antibiotics unless instructed to do so by your surgeon. These can cause infection or allergic reaction. 6. Call your doctor if: - Your temperature exceeds 101.5 F - You experience excessive pain or swelling - You have an unexpected reaction to medication - You have excessive bleeding - You experience continued vomiting/nausea - Your incision begins to separate - Your incision shows signs of infection such as increased redness, swelling, excessive pain, heat, or drainage (light blood or clear fluid is normal) 7. General instructions: No lifting greater than 5 lbs for the next 4 weeks[address] driving within 24 hours of taking narcotic pain medications. If you do not move your bowels in the next 2 days, please take milk of magnesia over the counter. Please follow the post op diet and do not advance your diet until you are seen in the office in about 2 weeks. Please walk around your home every hour or two to prevent blood clots from forming in your legs. You do not need to wake from sleeping to walk. Please sleep in a bed or couch to prevent kinking at the hips and knees. Please take your incentive spirometer (your lung psychologist developmental) home with you and use it for the next few days to prevent pneumonias. You may shower, no hot tubs, baths or swimming pools. Please call the office with any questions or concerns such as increasing abdominal pain, fever, chills, shortness of breath, chest pain, leg pain or swelling, or redness or drainage from your incisions. Please stay on stage 3 diet which includes sugar free clear liquids such as ice pops and jello and broth and crystal light. Avoid all carbonation. Please drink 3 protein shakes with at least 25-30 grams of protein daily or 3 of the Celebrate 4:1 shakes which can be purchased in our office. The Celebrate shakes have all of the bariatric vitamins you need if you consume these shakes. If you are drinking other protein shakes, you will need to purchase the Celebrate multivitamins and calcium that we provide in the office (they will provide all the vitamins you need). Please make sure you are consuming at least 40-60 ounces of water in addition to your 3 protein shakes daily. Do not hesitate to contact the office with any questions at . The patient's medical history has been reviewed and they are considered low risk for post op DVT and therefore DVT prophylaxis is not considered necessary. Travel after surgery was reviewed. The patient has not disclosed any travel plans during the first 30 days after surgery and they have been advised that within the first 30 days after surgery any bus, plane, train or car travel over 2 hours in duration is contraindicated due to the possibility of developing blood clots from immobility. Any travel, needs to include periods of ambulation of 10 minutes in duration every 2 hours.? The patient was instructed to discuss any plans for travel during this period with their bariatric surgeon. Assessment: stable post op sleeve gastrectomy
[2021-02-13] MEDS: Famotidine/PF 20 MG/2 ML VIAL IVPUSH ×2 (10:59→21:14)
[2021-02-13 11:48] LABS: Hematocrit 43.2 % (37-47); Hemoglobin 13.8 g/dl (12.0-16.0)
[2021-02-13] MEDS: Lactated Ringers 1,000 ML 125 ML IVCONT ×2 (12:37→20:31)
[2021-02-13] MEDS: ceFAZolin Sodium/Dextrose,Iso 2 GM/50 ML PIGGYBACK IV (13:31)
[2021-02-13 14:18] LABS: Anion Gap 15 (12-20); Blood Urea Nitrogen 16 mg/dL (9-16); Calcium 9.5 mg/dL (8.4-10.2); Carbon Dioxide 28 mmol/L (22-29); Chloride 101 mmol/L (96-108); Creatinine Clr Calc Pharmacy 99.2; Estimated Glomerular Filt Rate > 60; Glucose Random 124 mg/dL (60-115); Potassium 4.7 mmol/L (3.3-5.1); Sodium 139 mmol/L (135-145)
[2021-02-13] MEDS: 0.9 % Sodium Chloride Flush 3 ML SYRINGE IVFLUSH (15:27)
[2021-02-13] MEDS: lisinopriL 10 MG TABLET PO (17:30)
--- NOTE | 2021-02-13 18:31 | PC.NURSE ---
Pt presents to the unit from the OR s/p gastric sleeve. She is alert, rr even, speaks in full sentences, she has 5 dressings across her mid-abdomen. All dry and intact, with the middle dressing showing scant amount of bloody staining. Pt is self driven on incentive spirometry and fluid intake chart. She tolerated ambulating a few steps to the toilet at her bedside well. She voided 300cc. Currently denies any complaints.
[2021-02-13] MEDS: ondansetron HCL 4 MG/2 ML VIAL IVPUSH (21:14)
[2021-02-14] VITALS: BP 121/61; PULSE 78; RESP 18; O2SAT 96
[2021-02-14 04:00] VITALS: BP 126/59; PULSE 77; RESP 18; TEMP 37; O2SAT 96
[2021-02-14] MEDS: Lactated Ringers 1,000 ML 125 ML IVCONT (04:28)
[2021-02-14] MEDS: ondansetron HCL 4 MG/2 ML VIAL IVPUSH (04:29)
--- NOTE | 2021-02-14 06:42 | HO.POSTANES ---
Post Anesthesia Evaluation Post Anesthesia Evaluation Vital Signs: Vital Signs Temp Pulse Resp BP Pulse Ox 02/14/21 04:00 98.6 F 77 18 126/59 L 96 02/14/21 00:00 78 18 121/61 96 02/13/21 19:44 98.2 F 92 12 152/69 H 98 Anesthesia: General Endotracheal-GETA Mental Status: Awake Pain Control: Satisfactory Nausea/Vomiting: None Hydration: Adequate Anesthesia-Related Issues: No Anes. Related Issues
[2021-02-14 07:14] LABS: MANUAL DIFF FLAG NO
[2021-02-14 07:19] LABS: Basophils Percent Auto 0.1 % (0-2); Hematocrit 35.4 % (37-47); Hemoglobin 11.4 g/dl (12.0-16.0); Imm Gran Abs Auto 0.06 X10*3/uL (0.00-0.03); Imm Gran Pct Auto 0.5 % (0.0-0.4); Lymphocytes Absolute Auto 0.5 X10*3/uL (1.2-4.9); Lymphocytes Percent Auto 3.8 % (20-40); Mean Corpuscular HGB Conc 32.2 g/dl (31.0-35.0); Mean Corpuscular Hemoglobin 28.2 pg (27.0-33.0); Mean Corpuscular Volume 87.6 fL (80-98); Mean Platelet Volume 11.1 fL (9.4-12.3); Monocytes Absolute Auto 0.7 X10*3/uL (0.1-1.2); Monocytes Percent Auto 5.8 % (2-11); Neutrophils Absolute Auto 11.1 X10*3/uL (2.0-8.3); Neutrophils Percent Auto 89.8 % (45-73); Platelet Count 262 X10*3/uL (160-400); Red Blood Count 4.04 X10*6/uL (4.20-5.50); White Blood Count 12.4 X10*3/uL (4.8-10.8)
[2021-02-14 07:26] VITALS: BP 119/55; PULSE 77; RESP 17; TEMP 37.1; O2SAT 98
[2021-02-14 07:37] LABS: Anion Gap 13 (12-20); Blood Urea Nitrogen 13 mg/dL (9-16); Calcium 8.7 mg/dL (8.4-10.2); Carbon Dioxide 26 mmol/L (22-29); Chloride 104 mmol/L (96-108); Creatinine Clr Calc Pharmacy 118.7; Estimated Glomerular Filt Rate > 60; Glucose Random 94 mg/dL (60-115); Potassium 3.9 mmol/L (3.3-5.1); Sodium 139 mmol/L (135-145)
[2021-02-14] MEDS: lisinopriL 10 MG TABLET PO (07:50)
[2021-02-14] MEDS: Famotidine/PF 20 MG/2 ML VIAL IVPUSH (07:53)
--- NOTE | 2021-02-14 09:13 | MHC.CM.PN ---
pt lives c her in their home. she reports that she is independent in her care . her can help her should she need it and he will be providing a ride home at dc. pt denies the need for vna at dc. dc plan is home no svcs. cm to cont. to follow.
== END 2021-02-14 09:19 | disposition home or self-care (01) | DRG 403 ==
LOC: HO.SSSA 10:51 → HO.ISO 16:10
PROVIDERS: Physician Assistant Surgical; Admitting Provider Surgery; PCP Internal Medicine; Visit Provider Surgery
PROC: 0DB64Z3 Excision of Stomach, Percutaneous Endoscopic Approach, Vertical (ICD-10-PCS; CPT 43845; principal; 2021-02-13 07:30)
DX: E66.01 Morbid (severe) obesity due to excess calories (principal); I11.9 Hypertensive heart disease without heart failure; K74.00 Hepatic fibrosis, unspecified; E78.5 Hyperlipidemia, unspecified; K76.0 Fatty (change of) liver, not elsewhere classified; K21.9 Gastro-esophageal reflux disease without esophagitis; Z68.42 Body mass index [BMI] 45.0-49.9, adult; M19.90 Unspecified osteoarthritis, unspecified site; Z20.822 Contact with and (suspected) exposure to COVID-19; Z79.899 Other long term (current) drug therapy
CPT/HCPCS: 36415; 80048; 80053; 80061; 83036; 83525; 84443; 85014; 85018; 85025; 85610; 85730; 86140; 86850; 86900; 86901; 87635; 88307; 88342; 99024; A4649; J0131; J0690; J1100; J1170; J2250; J2405; J3010

== ENCOUNTER → 2021-02-19 07:40 | Outpatient (BNVA) | payer OTHER, SELFPAY | PROVIDERS: PCP Internal Medicine; Visit Provider Surgery | DX: E66.01 Morbid (severe) obesity due to excess calories (principal) | CPT/HCPCS: 99212 ==

== ENCOUNTER → 2021-03-21 07:59 | Outpatient (BNVA) | payer OTHER, SELFPAY | PROVIDERS: PCP Internal Medicine; Visit Provider Surgery | DX: E66.01 Morbid (severe) obesity due to excess calories (principal); Z68.41 Body mass index [BMI] 40.0-44.9, adult | CPT/HCPCS: 99212 ==

== ENCOUNTER → 2021-04-23 08:14 | Outpatient (BNVA) | payer OTHER, SELFPAY | PROVIDERS: PCP Internal Medicine; Visit Provider Surgery | DX: E66.01 Morbid (severe) obesity due to excess calories (principal); Z68.41 Body mass index [BMI] 40.0-44.9, adult | CPT/HCPCS: 99212 ==

== ENCOUNTER → 2021-05-04 08:18 | Outpatient (BNVA) | payer OTHER, SELFPAY | PROVIDERS: PCP Internal Medicine; Visit Provider Physician Assistant Surgical ==

== ENCOUNTER → 2021-06-08 08:07 | Outpatient (BNVA) | payer OTHER, SELFPAY | PROVIDERS: PCP Internal Medicine; Visit Provider Physician Assistant Surgical ==

== ENCOUNTER 2021-07-30 08:47 | Outpatient (REF) | payer OTHER, SELFPAY ==
[2021-07-30 09:31] LABS: MANUAL DIFF FLAG NO
[2021-07-30 10:12] LABS: Basophils Absolute Auto 0.1 X10*3/uL (0.0-0.2); Basophils Percent Auto 0.7 % (0-2); Eosinophils Absolute Auto 0.2 X10*3/uL (0.0-0.4); Eosinophils Percent Auto 2.5 % (0-4); Hematocrit 43.1 % (37.0-47.0); Hemoglobin 13.7 g/dl (12.0-16.0); Imm Gran Abs Auto 0.03 X10*3/uL (0.00-0.03); Imm Gran Pct Auto 0.4 % (0.0-0.4); Lymphocytes Absolute Auto 1.1 X10*3/uL (1.2-4.9); Mean Corpuscular HGB Conc 31.8 g/dl (31.0-35.0); Mean Corpuscular Hemoglobin 27.9 pg (27.0-33.0); Mean Corpuscular Volume 87.8 fL (80.0-98.0); Mean Platelet Volume 11.3 fL (9.4-12.3); Monocytes Absolute Auto 0.5 X10*3/uL (0.1-1.2); Neutrophils Absolute Auto 5.7 x10*3/uL (2.0-8.3); Neutrophils Percent Auto 75.4 % (45-73); Platelet Count 298 X10*3/uL (160-400); Red Blood Count 4.91 X10*6/uL (4.20-5.50); Red Cell Distribution Width 12.9 % (11.0-16.0); White Blood Count 7.6 X10*3/uL (4.8-10.8)
[2021-07-30 10:57] LABS: Anion Gap 15 (12-20); Blood Urea Nitrogen 23 mg/dL (9-16); C Reactive Protein 0.69 mg/dL (< or = 0.50); Calcium 10.4 mg/dL (8.4-10.2); Carbon Dioxide 29 mmol/L (22-29); Chloride 102 mmol/L (96-108); Cholesterol 212 mg/dL; Estimated Glomerular Filt Rate > 60; Glucose Random 92 mg/dL (60-115); HDL Cholesterol 46 mg/dL; Iron 89 mcg/dL (30-160); LDL Cholesterol Calculated 132 mg/dl; Potassium 4.6 mmol/L (3.3-5.1); Sodium 141 mmol/L (135-145); Triglycerides 174 mg/dL
[2021-07-30 11:04] LABS: TSH reflex Free T4 2.06 uIU/mL (0.32-4.0); Vitamin D 25-OH Total 52.1 ng/mL (>30)
[2021-07-30 11:06] LABS: Estimated Average Glucose 103 mg/dL; Hemoglobin A1c % 5.2 %
[2021-07-30 11:25] LABS: Percent Iron Saturation 29 % (15-50); Total Iron Binding Capacity 307 mcg/dL (228-428); Unsaturated Iron Binding 218 ug/dL
[2021-07-30 11:45] LABS: Folate 12.7 ng/mL (> or = 4.0); Vitamin B12 597 pg/mL (200-900)
[2021-07-30 11:46] LABS: Ferritin 490 ng/mL (10-250)
[2021-07-31 13:57] LABS: Calcium (PTHI) 9.9 mg/dL (8.6-10.4); PTHI 34 pg/mL (14-64)
[2021-08-02 05:07] LABS: Zinc 79 mcg/dL (60-130)
[2021-08-02 14:33] LABS: Vitamin B1 23 nmol/L (8-30)
[2021-08-03 20:50] LABS: Vitamin A 56 mcg/dL (38-98)
== END 2021-07-30 08:48 | disposition home or self-care (01) ==
LOC: HO.LAB 08:47
PROVIDERS: Visit Provider Physician Assistant Surgical
DX: I10 Essential (primary) hypertension (principal); E66.01 Morbid (severe) obesity due to excess calories; Z68.41 Body mass index [BMI] 40.0-44.9, adult
CPT/HCPCS: 36415; 80048; 80061; 82306; 82607; 82728; 82746; 83036; 83540; 83970; 84425; 84443; 84590; 84630; 85025; 86140

== ENCOUNTER → 2021-08-01 13:44 | Outpatient (BNVA) | payer OTHER, SELFPAY | PROVIDERS: PCP Internal Medicine; Referring Provider Internal Medicine; Visit Provider Physician Assistant Surgical | DX: E66.9 Obesity, unspecified (principal); Z68.39 Body mass index [BMI] 39.0-39.9, adult | CPT/HCPCS: 99212 ==

== ENCOUNTER 2021-11-02 14:10 | Outpatient (REF) | payer OTHER, SELFPAY ==
[2021-11-02 15:21] LABS: MANUAL DIFF FLAG NO
[2021-11-02 15:49] LABS: Basophils Absolute Auto 0.1 X10*3/uL (0.0-0.2); Basophils Percent Auto 0.8 % (0-2); Eosinophils Absolute Auto 0.1 X10*3/uL (0.0-0.4); Eosinophils Percent Auto 1.9 % (0-4); Hematocrit 43.2 % (37.0-47.0); Hemoglobin 13.7 g/dl (12.0-16.0); Imm Gran Abs Auto 0.02 X10*3/uL (0.00-0.03); Imm Gran Pct Auto 0.3 % (0.0-0.4); Lymphocytes Percent Auto 15.3 % (20-40); Mean Corpuscular HGB Conc 31.7 g/dl (31.0-35.0); Mean Corpuscular Hemoglobin 27.9 pg (27.0-33.0); Monocytes Absolute Auto 0.5 X10*3/uL (0.1-1.2); Monocytes Percent Auto 8.5 % (2-11); Neutrophils Absolute Auto 4.6 x10*3/uL (2.0-8.3); Neutrophils Percent Auto 73.2 % (45-73); Platelet Count 283 X10*3/uL (160-400); Red Blood Count 4.91 X10*6/uL (4.20-5.50); Red Cell Distribution Width 12.2 % (11.0-16.0); White Blood Count 6.3 X10*3/uL (4.8-10.8)
[2021-11-02 16:10] LABS: Anion Gap 14 (12-20); Blood Urea Nitrogen 35 mg/dL (9-16); Carbon Dioxide 26 mmol/L (22-29); Chloride 104 mmol/L (96-108); Estimated Glomerular Filt Rate > 60; Glucose Random 97 mg/dL (60-115); Iron 84 mcg/dL (30-160); Potassium 4.3 mmol/L (3.3-5.1); Sodium 140 mmol/L (135-145)
[2021-11-02 16:27] LABS: Percent Iron Saturation 25 % (15-50); Total Iron Binding Capacity 337 mcg/dL (228-428); Unsaturated Iron Binding 253 ug/dL
[2021-11-02 16:34] LABS: Ferritin 309 ng/mL (10-250); Vitamin D 25-OH Total 46.8 ng/mL (>30)
[2021-11-02 16:46] LABS: Folate 19.9 ng/mL (> or = 4.0); Vitamin B12 521 pg/mL (200-900)
[2021-11-05 15:53] LABS: Calcium (PTHI) 10.2 mg/dL (8.6-10.4); PTHI 35 pg/mL (16-77)
[2021-11-05 21:32] LABS: Zinc 75 mcg/dL (60-130)
[2021-11-07 11:32] LABS: Vitamin B1 65 nmol/L (8-30)
[2021-11-07 17:12] LABS: Vitamin A 71 mcg/dL (38-98)
== END 2021-11-02 14:11 | disposition home or self-care (01) ==
LOC: HO.LAB 14:10
PROVIDERS: PCP Internal Medicine; Referring Provider Internal Medicine; Visit Provider Physician Assistant Surgical
DX: E66.9 Obesity, unspecified (principal); Z71.3 Dietary counseling and surveillance; Z68.39 Body mass index [BMI] 39.0-39.9, adult; Z79.899 Other long term (current) drug therapy
CPT/HCPCS: 36415; 80048; 82306; 82607; 82728; 82746; 83540; 83970; 84425; 84590; 84630; 85025; 99212

== ENCOUNTER → 2021-11-09 14:10 | Outpatient (BNVA) | payer OTHER, SELFPAY | PROVIDERS: PCP Internal Medicine; Referring Provider Physician Assistant Surgical; Visit Provider Dietitian, Registered | DX: E66.9 Obesity, unspecified (principal) | CPT/HCPCS: 97803 ==

== ENCOUNTER → 2022-02-08 11:21 | Outpatient (BNVA) | payer OTHER, SELFPAY | PROVIDERS: PCP Internal Medicine; Visit Provider Physician Assistant Surgical | DX: E66.9 Obesity, unspecified (principal); Z98.84 Bariatric surgery status; Z68.37 Body mass index [BMI] 37.0-37.9, adult | CPT/HCPCS: 99212 ==

== ENCOUNTER → 2022-05-17 09:39 | Outpatient (BNVA) | payer OTHER, SELFPAY | PROVIDERS: PCP Internal Medicine; Visit Provider Physician Assistant Surgical | DX: E66.9 Obesity, unspecified (principal); Z68.37 Body mass index [BMI] 37.0-37.9, adult; Z98.84 Bariatric surgery status | CPT/HCPCS: 99212 ==

== ENCOUNTER → 2022-08-15 09:44 | Outpatient (BNVA) | payer OTHER, SELFPAY | PROVIDERS: PCP Internal Medicine; Visit Provider Physician Assistant Surgical | DX: E66.9 Obesity, unspecified (principal); Z68.37 Body mass index [BMI] 37.0-37.9, adult; Z98.84 Bariatric surgery status | CPT/HCPCS: 99212 ==

== ENCOUNTER 2022-09-26 09:09 | Outpatient (REF) | payer OTHER, SELFPAY ==
[2022-09-26 11:24] LABS: MANUAL DIFF FLAG NO
[2022-09-26 11:42] LABS: Basophils Absolute Auto 0.1 X10*3/uL (0.0-0.2); Basophils Percent Auto 0.9 % (0-2); Eosinophils Absolute Auto 0.1 X10*3/uL (0.0-0.4); Hematocrit 40.8 % (37.0-47.0); Hemoglobin 13.1 g/dl (12.0-16.0); Imm Gran Abs Auto 0.01 X10*3/uL (0.00-0.03); Imm Gran Pct Auto 0.2 % (0.0-0.4); Lymphocytes Absolute Auto 0.9 X10*3/uL (1.2-4.9); Lymphocytes Percent Auto 13.7 % (20-40); Mean Corpuscular HGB Conc 32.1 g/dl (31.0-35.0); Mean Corpuscular Volume 87.2 fL (80.0-98.0); Mean Platelet Volume 10.6 fL (9.4-12.3); Monocytes Absolute Auto 0.5 X10*3/uL (0.1-1.2); Monocytes Percent Auto 7.2 % (2-11); Neutrophils Absolute Auto 4.8 x10*3/uL (2.0-8.3); Platelet Count 254 X10*3/uL (160-400); Red Blood Count 4.68 X10*6/uL (4.20-5.50); Red Cell Distribution Width 12.6 % (11.0-16.0); White Blood Count 6.4 X10*3/uL (4.8-10.8)
[2022-09-26 11:50] LABS: Estimated Average Glucose 91 mg/dL; Hemoglobin A1c % 4.8 %
[2022-09-26 11:58] LABS: Alanine Aminotransferase 13 U/L (0-31); Albumin Level 4.4 g/dL (3.5-5.0); Alkaline Phosphatase 108 U/L (39-117); Anion Gap 14 (12-20); Aspartate Amino Transferase 16 U/L (5-31); Bilirubin Total 0.7 mg/dL (0.0-1.0); Blood Urea Nitrogen 23 mg/dL (9-16); C Reactive Protein 0.28 mg/dL (< or = 0.50); Calcium 9.8 mg/dL (8.4-10.2); Carbon Dioxide 26 mmol/L (22-29); Chloride 105 mmol/L (96-108); Cholesterol 274 mg/dL; Estimated Glomerular Filt Rate > 60; Glucose Random 96 mg/dL (60-115); HDL Cholesterol 58 mg/dL; Iron 71 mcg/dL (30-160); LDL Cholesterol Calculated 189 mg/dl; Percent Iron Saturation 24 % (15-50); Potassium 3.8 mmol/L (3.3-5.1); Sodium 141 mmol/L (135-145); Total Iron Binding Capacity 294 mcg/dL (228-428); Total Protein 6.9 g/dL (6.5-8.0); Triglycerides 139 mg/dL; Unsaturated Iron Binding 223 ug/dL
[2022-09-26 12:36] LABS: Ferritin 304 ng/mL (10-250); Folate 12.8 ng/mL (> or = 4.0); Insulin 11 uU/mL (2-29); TSH reflex Free T4 1.08 uIU/mL (0.32-4.0); Vitamin B12 312 pg/mL (200-900); Vitamin D 25-OH Total 38.7 ng/mL (>30)
[2022-09-27 14:08] LABS: Calcium (PTHI) 9.8 mg/dL (8.6-10.4); PTHI 34 pg/mL (16-77)
[2022-10-01 14:39] LABS: Zinc 77 mcg/dL (60-130)
[2022-10-02 16:48] LABS: Vitamin B1 11 nmol/L (8-30)
[2022-10-03 16:29] LABS: Vitamin A 69 mcg/dL (38-98)
== END 2022-09-26 09:10 | disposition home or self-care (01) ==
LOC: HO.HMGCLDS 09:09
PROVIDERS: PCP Internal Medicine; Visit Provider Physician Assistant Surgical
DX: Z98.84 Bariatric surgery status (principal)
CPT/HCPCS: 36415; 80053; 80061; 82306; 82607; 82728; 82746; 83036; 83525; 83540; 83970; 84425; 84443; 84590; 84630; 85025; 86140

== ENCOUNTER → 2022-10-22 09:53 | Outpatient (BNVA) | payer OTHER, SELFPAY | PROVIDERS: PCP Internal Medicine; Visit Provider Physician Assistant Surgical | DX: E66.9 Obesity, unspecified (principal); Z98.84 Bariatric surgery status; Z68.38 Body mass index [BMI] 38.0-38.9, adult | CPT/HCPCS: 99212 ==

== ENCOUNTER 2024-08-10 12:38 | Outpatient (AMB) | payer OTHER, MEDICARE, MEDICAID, SELFPAY ==
--- NOTE | 2024-08-10 13:01 | MHC.OFFVISWM ---
VS Expanded 08/10/24 13:08 BP 132/82 Blood Pressure Location Rt brachial Blood Pressure Position Sitting Pulse 74 Pulse Source Pulse Oximeter Temp 97.3 F Temperature Source Temporal Artery Scan Pulse Oximetry 98 Oxygen Delivery Method Room Air Height 5 ft 7 in Weight 296 lb BMI 46.4 Body Fat % 49.5 Body Fat Mass 146.4 Fat Free Mass 149.4 Visceral Fat Rating 18.0 Body Water % 35.9 Body Water Mass 106.2 Muscle Mass/Score 142.0 Basal Metabolic Rate/Score 2,135 Intake Visit Reasons: (OV) PO LSG 02/13/21 Funeral Pre Arrangement Specialist Required: No Allergies No Known Allergies [No Known Allergies*] Allergy (Verified 08/10/24 13:03) Medication List - Last Reconciled 08/10/24 by SIRISHA Sidhu acetaminophen ER 650 mg PO Q8H PRN albuterol sulfate 90 mcg/actuation 2 puffs inhalation Q6H PRN baclofen mg PO clotrimazole 1% 1 appl topical BID cyanocobalamin (vitamin B-12) (Vitamin B-12) 500 mcg PO DAILY famotidine mg PO HPI Comments Details: This?a?59?yo female who is s/p LSG without hiatal hernia repair on?02/13/2021. Presents for 3 year 6 month post op visit. She was last seen in the office in 10/19/2022 with a weight of 248.4 lb. Weight today is 296 pounds, with a BMI of 46.4. There has been a 39 pound weight loss,(initial weight 335 pounds) since starting the program on 12/13/2020 reflecting a 11.6% total body weight loss and a weight loss of 7.6 pounds since surgery (operative weight 303.6 pounds) reflecting a 0.02% TBWL since surgery. No complaints of nausea, emesis, abdominal pain or reflux. Reports infrequent but normal bowel movements everyday. She states that she is no longer taking her lisinopril or hydrochlorothiazide. She is not doing this under the direction of a physician but rather wanted to see if she still has hypertension. She states that she is checking her blood pressure at home daily in the morning, 130s/80s. She has not been seen in the office in 2 years as she had been embarrassed regarding her weight regain. Present meal plan includes: nothing formal ? Exercise routine includes: none membership at [facility] in [facility] Medical History Liver fibrosis Steatosis, liver GERD (gastroesophageal reflux disease) Hyperlipidemia Depression DJD (degenerative joint disease) Hypertension Asthma Morbid obesity Surgical History Hx of total knee replacement History of sleeve gastrectomy Hx of LASIK Hx of wisdom tooth extraction Hx of cholecystectomy Hx of colonoscopy Family History Mother No problems noted. Father No problems noted. Brother No problems noted. Brother No problems noted. Brother Diabetes Sister No problems noted. Sister No problems noted. Sister No problems noted. Sister No problems noted. Son No problems noted. Daughter No problems noted. Social History Household Members: Spouse Household Members Other:: 2 Housing: House Are you a primary child care center assistant director to a significant other at home: No Do you presently have visiting nurse or other home services: No Alcohol intake: former Patient Tobacco Use Status: Never used Tobacco Second Hand Smoke Exposure: No service: No Current occupational status: unemployed Physical Exam Const General: healthy appearing and no acute distress Resp Effort & Inspection: normal respiratory effort Auscultation: clear to auscultation bilaterally Cardio Rate: regular rate Rhythm: regular rhythm GI Auscultation: normal bowel sounds Extrem General: Yes normal to inspection Assessment & Plan Assessment & Plan (1) S/P laparoscopic sleeve gastrectomy: Code(s): Z98.84 - Bariatric surgery status Category: Surgical Plan: Discussed the importance of following meal plan. Discussed the importance of exercise. She will start right BMI ashlee. she will resume exercise at [employer]. We will have her return to the office in approximately 6 weeks. Encouraged to send weight weekly from her body composition scale as well as to text with any questions or concerns. Check postop labs. Encouraged to get celebrate multivitamin and calcium plus D. Orders: Orders Hemoglobin A1c Today E51.9 - Thiamine deficiency, unspecified, E55.9 - Vitamin D deficiency, unspecified, E78.5 - Hyperlipidemia, unspecified, I10 - Essential (primary) hypertension, K76.0 - Fatty (change of) liver, not elsewhere classified, Z98.84 - Bariatric surgery status Complete Blood Count Auto Diff Today E51.9 - Thiamine deficiency, unspecified, E55.9 - Vitamin D deficiency, unspecified, E78.5 - Hyperlipidemia, unspecified, I10 - Essential (primary) hypertension, K76.0 - Fatty (change of) liver, not elsewhere classified, Z98.84 - Bariatric surgery status Lipid Panel Today E51.9 - Thiamine deficiency, unspecified, E55.9 - Vitamin D deficiency, unspecified, E78.5 - Hyperlipidemia, unspecified, I10 - Essential (primary) hypertension, K76.0 - Fatty (change of) liver, not elsewhere classified, Z98.84 - Bariatric surgery status Comprehensive Met. Panel Today E51.9 - Thiamine deficiency, unspecified, E55.9 - Vitamin D deficiency, unspecified, E78.5 - Hyperlipidemia, unspecified, I10 - Essential (primary) hypertension, K76.0 - Fatty (change of) liver, not elsewhere classified, Z98.84 - Bariatric surgery status Vitamin A Today E51.9 - Thiamine deficiency, unspecified, E55.9 - Vitamin D deficiency, unspecified, E78.5 - Hyperlipidemia, unspecified, I10 - Essential (primary) hypertension, K76.0 - Fatty (change of) liver, not elsewhere classified, Z98.84 - Bariatric surgery status TSH reflex Free T4 Today E51.9 - Thiamine deficiency, unspecified, E55.9 - Vitamin D deficiency, unspecified, E78.5 - Hyperlipidemia, unspecified, I10 - Essential (primary) hypertension, K76.0 - Fatty (change of) liver, not elsewhere classified, Z98.84 - Bariatric surgery status Ferritin Today E51.9 - Thiamine deficiency, unspecified, E55.9 - Vitamin D deficiency, unspecified, E78.5 - Hyperlipidemia, unspecified, I10 - Essential (primary) hypertension, K76.0 - Fatty (change of) liver, not elsewhere classified, Z98.84 - Bariatric surgery status Insulin Today E51.9 - Thiamine deficiency, unspecified, E55.9 - Vitamin D deficiency, unspecified, E78.5 - Hyperlipidemia, unspecified, I10 - Essential (primary) hypertension, K76.0 - Fatty (change of) liver, not elsewhere classified, Z98.84 - Bariatric surgery status IRON PROFILE Today E51.9 - Thiamine deficiency, unspecified, E55.9 - Vitamin D deficiency, unspecified, E78.5 - Hyperlipidemia, unspecified, I10 - Essential (primary) hypertension, K76.0 - Fatty (change of) liver, not elsewhere classified, Z98.84 - Bariatric surgery status Vitamin B12 and Folate Today E51.9 - Thiamine deficiency, unspecified, E55.9 - Vitamin D deficiency, unspecified, E78.5 - Hyperlipidemia, unspecified, I10 - Essential (primary) hypertension, K76.0 - Fatty (change of) liver, not elsewhere classified, Z98.84 - Bariatric surgery status Zinc Today E51.9 - Thiamine deficiency, unspecified, E55.9 - Vitamin D deficiency, unspecified, E78.5 - Hyperlipidemia, unspecified, I10 - Essential (primary) hypertension, K76.0 - Fatty (change of) liver, not elsewhere classified, Z98.84 - Bariatric surgery status C Reactive Protein Today E51.9 - Thiamine deficiency, unspecified, E55.9 - Vitamin D deficiency, unspecified, E78.5 - Hyperlipidemia, unspecified, I10 - Essential (primary) hypertension, K76.0 - Fatty (change of) liver, not elsewhere classified, Z98.84 - Bariatric surgery status Vitamin B1 Today E51.9 - Thiamine deficiency, unspecified, E55.9 - Vitamin D deficiency, unspecified, E78.5 - Hyperlipidemia, unspecified, I10 - Essential (primary) hypertension, K76.0 - Fatty (change of) liver, not elsewhere classified, Z98.84 - Bariatric surgery status Vitamin D 25-OH Total Today E51.9 - Thiamine deficiency, unspecified, E55.9 - Vitamin D deficiency, unspecified, E78.5 - Hyperlipidemia, unspecified, I10 - Essential (primary) hypertension, K76.0 - Fatty (change of) liver, not elsewhere classified, Z98.84 - Bariatric surgery status
[2024-08-10 13:08] VITALS: BP 132/82; PULSE 74; TEMP 36.3; O2SAT 98; BMI 46.4
--- OUTSIDE RECORDS SUMMARY | 2024-08-10 15:11 | XMS_ITS | Clinical Summary ---
Author Organization [facility] [address] [facility] Address [address] [facility] [place] [address] Phone Care Team Providers Care Title Checker Name Role Phone Lynsey Nagel MD Primary Care Provider [phone] Allergies No known active allergies Medications citalopram (CeleXA) 10 mg tablet TAKE 1 TABLET DAILY ALONG WITH A 20 MG TABLET FOR A TOTAL OF 30 MG DAILY 03/15/2024 Active baclofen (LIORESAL) 10 mg tablet TAKE 1 TABLET BY MOUTH AT BEDTIME NEEDED (MUSCLE PAIN/SPASM). 03/15/2024 Active lisinopriL (PRINIVIL,ZESTR IL) 10 mg tablet Take 1 Tablet by mouth daily. 03/08/2024 Active hydroCHLOROthia zide 12.5 mg tablet Take 1 Tablet by mouth daily. 03/08/2024 Active cyanocobalamin (VITAMIN B-12) 500 mcg tablet Take 1 Tablet by mouth daily. 03/08/2024 Active citalopram (CeleXA) 20 mg tablet TAKE 1 TABLET BY MOUTH DAILY WITH 10 MG TABLET FOR A TOTAL OF 30 MG DAILY. 02/06/2024 Active amoxicillin (AMOXIL) 500 mg tablet Take 4 Tablets by mouth Once. Take 1 hour prior to dental procedure. 01/08/2024 Active albuterol HFA (Ventolin HFA) 90 mcg/actuation inhaler INHALE 2 PUFFS INTO THE LUNGS EVERY 4 HOURS NEEDED FOR COUGH OR WHEEZING. 07/30/2023 Active clotrimazole (LOTRIMIN) 1 % cream 01/13/2023 Active acetaminophen (TYLENOL ORAL) Take 650 mg by mouth every 8 (eight) hours if needed (pain). Active famotidine (PEPCID) 20 mg tablet TAKE 1 TABLET BY MOUTH 2 TIMES DAILY. 30 MINS PRIOR TO MEAL 180 tablet 1 06/15/2024 Active Active Problems Problem Noted Date Diagnosed Date S/P bariatric surgery 06/15/2024 Gastroesophageal reflux disease 06/15/2024 Severe obesity 05/12/2024 Electrical shock sensation 09/05/2023 Overview (05/12/2024): Labs without acute abnormality. MRI without acute finding. White matter changes. Neurology consultation. Right-sided tinnitus 09/05/2023 Overview (05/12/2024): Chronic. Had ENT consultation. White matter abnormality on MRI of brain 023 History of hip replacement 07/12/2022 Overview (06/15/2024): 12/21 right THR Total knee replacement status 07/12/2022 Overview (06/15/2024): 04/23 left TKR 08/22 right TKR B12 deficiency 11/24/2018 Intramural leiomyoma of uterus 01/05/2016 Overview (05/12/2024): Using DepoProvera to control menses until menopause Hyperlipidemia 12/12/2012 Depression 07/16/2011 Hypertension 07/16/2011 Iron deficiency anemia 07/16/2011 Exercise-induced asthma 07/16/2011 Encounters Date Type Department Care Team Description 06/15/2024 10:51 AM EST - 06/15/2024 11:59 PM EST Hospital Encounter JAC[facility]ELY[facility] Farfan [address] [place] [address] Osteoarthritis of spine with radiculopathy, lumbar region Discharge Disposition: Home or Self Care 06/15/2024 10:30 AM EST Office Visit [facility] - [address] [phone] Enriqueta Fajardo PA Osteoarthritis of spine with radiculopathy, lumbar region (Primary Dx); Severe obesity (CMS/[facility]); S/P bariatric surgery; Gastroesophageal reflux disease, unspecified whether esophagitis present; Primary hypertension 06/10/2024 2:50 PM EST - 06/10/2024 11:59 PM EST Hospital Encounter Radiology Department - [address] [phone] Encounter for screening mammogram for breast cancer Discharge Disposition: Home or Self Care from Last 3 Months Immunizations Name Administration Dates Next Due Influenza trivalent, 0.5mL, preservative free (Fluarix; FluLaval; Fluzone) ages 6mo and older (Afluria) 3 years and older 04/28/2013,04/16/2012 Pfizer (age 5-11) Bivalent, COVID-19 08/26/2021 Pfizer SARS-CoV-2 COVID-19, mRNA, LNP-S, preservative free 03/09/2021 Tdap Tetanus diptheria acell ular pertussis (Boostrix; Adacel) 7yo and older 08/30/2022,04/16/2012 Surgical History Surgery Date Site/Laterality Comments CHOLECYSTECTOMY PROCEDURE: HISTORICAL CHOLECYSTECTOMY EYE SURGERY PROCEDURE: HISTORICAL EYE SURGERY; COMMENT: lasix eye correction OTHER SURGICAL HISTORY 06/06/14 [facility] PROCEDURE: COLON CA SCRN NOT HI RSK IND; COMMENT: tics and hemorrhoids; repeatin ten yrs OTHER SURGICAL HISTORY 01/2021 PROCEDURE: HISTORY OTHER; COMMENT: gastric sleeve TOTAL KNEE ARTHROPLASTY 04/2022 Left PROCEDURE: HISTORICAL TOTAL KNEE REPLACE HIP ARTHROPLASTY 11/2021 Right PROCEDURE: HISTORICAL HIP REPLACEMENT TOTAL KNEE ARTHROPLASTY 07/2022 Right PROCEDURE: HISTORICAL TOTAL KNEE REPLACE Medical History Medical History Date Comments Hyperlipidemia 12/12/2012 DX:Hyperlipidemi a Hypertension 07/16/2011 DX:Hypertension B12 deficiency 11/24/2018 DX:B12 deficienc y Morbid obesity with BMI of 5 0.0-59.9, adult (CMS/HCC) 12/26/2020 DX:Morbid obesity with BMI o f 50.0-59.9, adult ([facility]) Bariatric surgery status 03/16/2021 DX:Lencho atric surgery status; COMMENT: 02/20 gastric sleeve History of hip replacement 07/12/2022 DX:Hi story of hip replacement; COMMENT: 12/21 right THR Family History Medical History Relation Name Comments Diabetes Brother 1 passed complica tion from DM Hypertension Brother 2 Hypertension Father DM, CAD, lung c ancer- 50s Other: renal ca Mother mets to brai n; Other cancer Sister 1 uncertain type. half Hypertension Sister 2 Diabetes Sister 3 Liver disease Sister 4 Breast cancer Neg Hx Colon cancer Neg Hx Ovarian cancer Neg Hx Relation Name Status Comments Brother 1 Brother 2 Father Alive Mother Alive Sister 1 Sister 2 Sister 3 Sister 4 Social History Tobacco Use Types Packs/Day Years Used Date Smoking Tobacco: Never Smokeless Tobacco: Never Tobacco Cessation:Counseling Given: Not Answered Alcohol Use Standard Drinks/Week Comments No 0 (1 standard drink = 0.6 oz pur e alcohol) Housing Instability Answer Date Recorde d Are you worried that in the next 2 months you may not have stable housing? No 06/15/2024 Food Access & Nutrition Answer Date Rec orded Do you have access to a vari ety of food including fruits and vegetables? Yes 06/15/2024 Access to Healthcare Answer Date Record ed Within the last 3 months, ho w many times did you visit the emergency department for your medical care? 0 06/15/2024 Health Literacy Answer Date Recorded How often do you need to hav e someone help you when you read instructions, pamphlets, or other written material from your doctor or pharmacy? Never 06/15/2024 Caregiver: How often do you need to have someone help you when you read instructions, pamphlets, or other written material from your doctor or pharmacy? Not on file 06/15/2024 Financial Risk Answer Date Recorded How hard is it for you to pa y for the very basics like food, housing, medical care, and air conditioning / heating? Not very hard 06/15/2024 Transportation Answer Date Recorded Has the lack of transportati on kept you from meetings, work, or from getting things needed for daily living? No Has the lack of transportati on kept you from medical appointments or from getting medications? No 06/15/2024 Social Isolation Answer Date Recorded How often do you feel lonely or isolated from those around you? Sometimes 06/15/2024 Food Risk Answer Date Recorded Within the past 12 months we worried whether our food would run out before we got money to buy more. Never true 06/15/2024 Within the past 12 months th e food we bought just didn't last and we didn't have money to get more. Never true 06/15/2024 Dependent Care Answer Date Recorded Do you need help finding or paying for care for your loved ones. For example, child and adolescent therapist or elderly care for an older adult? No 06/15/2024 Education Answer Date Recorded Do you think completing more education or training, like finishing a GED, going to college, or learning a trade, would be helpful for you? No 06/15/2024 Employment and Income Answer Date Recor ded During the last four weeks, have you been actively looking for work? No 06/15/2024 Living Situation Answer Date Recorded What is your living situation? 0 06/15/2024 Comments No Sex and Gender Information Value Date Recorded Sex Assigned at Female 05/29/2024 6:31 AM EST Legal Sex Female 2:26 AM EST Gender Identity Female 05/29/2024 6:31 AM EST Sexual Orientation Straight 05/29/2024 6: 31 AM EST Obstetrics History Para Term AB IAB SAB Ectopic Multiple Livin g Live Births 2 2 2 2 Date Outcome GA Total Labor Labor/2nd/3rd Weight Sex Type Anes PTL Maira A1 A5 Name Clin Term Term Last Filed Vital Signs Vital Sign Reading Time Taken Comments Blood Pressure 132/88 06/15/2024 10:43 AM EST Pulse 71 06/15/2024 10:27 AM EST Temperature 35.7 ??C (96.3 ??F) 06/15/2024 10:[address] Respiratory Rate 13 06/15/2024 10:27 AM EST Oxygen Saturation - - Inhaled Oxygen Concentration - - Weight 134 kg (295 lb) 06/15/2024 10:27 AM EST Height 167.6 cm (5' 6 ) 06/15/2024 10:27 AM EST Body Mass Index 47.61 06/15/2024 10:27 AM EST Plan of Treatment Upcoming Encounters Date Type Department Care Team (Late st Contact Info) Description 08/18/2024 12:00 PM EDT Appointment [facility] Endoscopy [address] [place] [address] MD [address] [facility] [address] [place] [address] 08/30/2024 3:30 PM EDT Office Visit Adult Medicine [facility] [address] [place] [address] Lynsey Nagel MD [address] [place] [address] Health Maintenance Due Date Last Done Comments Pneumococcal Vaccine: 50+ Years (1 of 2 - PCV) 08/07/1982 Pneumococcal Vaccine: Pediatrics (0 to 5 Years) and At-Risk Patients (6 to 64 Years) (1 of 2 - PCV) 08/07/1982 Zoster Vaccines (1 of 2) 08/07/2013 Colorectal Cancer Screening: Colonoscopy 05/11/2022 HIV Screening 05/11/2022 Medicare Annual Wellness Visit 05/11/2022 RSV Immunization Patients 60+ Years Old (1 - Risk 60-74 years 1-dose series) 2023 COVID-19 Vaccine ( season) 2024 08/26/2021, 03/25/2021, 03/09/2021 Hypertension/CHF/CAD Annual BMP Blood Test 10/22/2024 10/23/2023, 10/23/2023 Influenza Vaccine (#1) 2024 04/28/2013, 2011 Postponed from 02/01/2024 (Patient Refused) Depression Screening 06/15/2025 06/15/2024 Social Influencers of Health Screening 06/15/2025 06/15/2024 Cervical Cancer Screening: HPV 02/26/2026 02/26/2021 Breast Cancer Screening 06/10/2026 06/10/19, 06/09/2023, 06/06/2022, Additional history exists Cholesterol Screening (Lipid Panel) 10/22/2028 10/23/2023, 10/23/2023 DTaP,Tdap,and Td Vaccines (3 - Td or Tdap) 08/30/2032 08/30/2022, 04/16/2012 Hepatitis C Screening Completed 12/08/2012 HIB Vaccines Aged Out No longer eligi ble based on patient's age to complete this topic HPV Vaccines Aged Out No longer eligi ble based on patient's age to complete this topic Hepatitis A Vaccines Aged Out No long er eligible based on patient's age to complete this topic Hepatitis B Vaccines Aged Out No long er eligible based on patient's age to complete this topic IPV Vaccines Aged Out No longer eligi ble based on patient's age to complete this topic MMR Vaccines Aged Out No longer eligi ble based on patient's age to complete this topic Meningococcal ACWY Vaccine Aged Out N o longer eligible based on patient's age to complete this topic Meningococcal B Vacine Aged Out No lo nger eligible based on patient's age to complete this topic RSV Immunization Patients Under 20 months Aged Out No longer eligible based on patient's age to complete this topic Varicella Vaccines Aged Out No longer eligible based on patient's age to complete this topic Procedures Procedure Name Priority Date/Time Associated Diagnosis Comments XR LUMBAR SPINE 4+ VIEWS Routine 06/15/2024 11:01 AM EST Osteoarthritis of spine with radiculopathy, lumbar region MAMMO DIGITAL SCREENING W BRIAN BILAT Routine 06/10/2024 3:04 PM EST Encounter for screening mammogram for breast cancer ANNUAL BMP BLOOD TEST Routine 10/23/2023 LIPID PANEL Routine 10/23/2023 HPV Routine 02/26/2021 HEPATITIS C SCREENING Routine 12/08/2012 from Last 3 Months or Most Recently Relevant to Health Maintenance Results * XR Lumbar Spine 4+ Views (06/15/2024 11:01 AM EST) Anatomical Region Laterality Modality Spine, L-spine Radiographic Savana ging 06/15/2024 11:4 4 AM EST Narrative 06/15/2024 11:45 AM EST Lumbosacral spine, 5 views. History pain. Comparison with previous examination from 12/20/2022. Vertebral bodies are maintained in height. There is mild anterior displacement of L4 over L5. There are discogenic osteophytes at multiple levels as well as hypertrophic changes in the facet joints more prominent at L3-4 L4-5 and L5-S1 levels. No visible fractures or dislocations. When compared with previous examination there is no significant interval change. CONCLUSIONS: Multilevel bony and discs degenerative changes. -------- FINAL REPORT -------- Dictated By: Sasha Packer Dictated Date: 06/15/2024 11:44 ET Assigned Physician: Sasha Packer Reviewed and Electronically Signed By: Sasha Packer Signed Date: 06/15/2024 11:45 ET Workstation ID: [id number] Transcribed By: Self Edit Transcribed Date: 06/15/2024 11:44 ET Procedure Note Sasha Packer MD - 06/15/2024 Lumbosacral spine, 5 views. History pain. Comparison with previous examination from 12/20/2022. Vertebral bodies are maintained in height. There is mild anteriordisplacement of L4 over L5. There are discogenic osteophytes at multiplelevels as well as hypertrophic changes in the facet joints more prominentat L3-4 L4-5 and L5-S1 levels. No visible fractures or dislocations. Whencompared with previous examination there is no significant intervalchange. CONCLUSIONS: Multilevel bony and discs degenerative changes. -------- FINAL REPORT -------- Dictated By: Sasha Packer Dictated Date: 06/15/2024 11:44 ET Assigned Physician: Sasha Packer Reviewed and Electronically Signed By: Sasha Packer Signed Date: 06/15/2024 11:45 ET Workstation ID: [id number] Transcribed By: Self Edit Transcribed Date: 06/15/2024 11:44 ET us Enriqueta GRIMM IMG XR PROCEDURES Final Result * MG Mammo Digital Screening w Brian bilat (06/10/2024 3:04 PM EST) Anatomical Region Laterality Modality Breast Bilateral Mammography 06/11/2024 12:5 9 PM EST Impressions 06/11/2024 1:00 PM EST No mammographic evidence of malignancy. BREAST DENSITY: B - There are scattered areas of fibroglandular density. BI-RADS CATEGORY: 1 - NEGATIVE RECOMMENDATION: Screening bilateral mammogram is recommended in 1 year. MAMMO LOCATION: [facility], [address] [place] [address], [id number], . -------- FINAL REPORT -------- Dictated By: Chely Fernandez Dictated Date: 06/11/2024 12:59 ET Assigned Physician: Chely Fernandez Reviewed and Electronically Signed By: Chely Fernandez Signed Date: 06/11/2024 13:00 ET Workstation ID: [id number] Transcribed By: Self Edit Transcribed Date: 06/11/2024 12:59 ET Narrative 06/11/2024 1:00 PM EST EXAM: Screening Mammogram CLINICAL: 58 years old, Female, routine annual exam. COMPARISON: 06/09/2023 and as far back as 06/05/2021 ?? TECHNIQUE: Bilateral MLO and CC views were obtained digitally with 3-D mammogram (digital breast tomosynthesis). Computer-aided detection was utilized in evaluation of this exam (CAD). ??Exam limited by patient body habitus and images obtained are the best possible. FINDINGS: No new suspicious mass, architectural distortion, or suspicious calcifications. Procedure Note Chely Fernandez MD - 06/11/2024 EXAM: Screening Mammogram CLINICAL: 58 years old, Female, routine annual exam. COMPARISON: 06/09/2023 and as far back as 06/05/2021 TECHNIQUE: Bilateral MLO and CC views were obtained digitally with 3-Dmammogram (digital breast tomosynthesis). Computer-aided detection wasutilized in evaluation of this exam (CAD). Exam limited by patient bodyhabitus and images obtained are the best possible. FINDINGS: No new suspicious mass, architectural distortion, or suspiciouscalcifications. IMPRESSION: No mammographic evidence of malignancy. BREAST DENSITY: B - There are scattered areas of fibroglandular density. BI-RADS CATEGORY: 1 - NEGATIVE RECOMMENDATION: Screening bilateral mammogram is recommended in 1 year. MAMMO LOCATION: [facility], [address] [place] [address], [phone], . -------- FINAL REPORT -------- Dictated By: Chely Fernandez Dictated Date: 06/11/2024 12:59 ET Assigned Physician: Chely Fernandez Reviewed and Electronically Signed By: Chely Fernandez Signed Date: 06/11/2024 13:00 ET Workstation ID: [id number] Transcribed By: Self Edit Transcribed Date: 06/11/2024 12:59 ET Result [facility] Lynsey Nagel MD IMG BI PROCEDURES Final Result * Annual BMP Blood Test (10/23/2023) [facility] Annual BMP Blood Test abstracted Result [facility] Provider HEALTH MAINTENANCE Final Result * (ABNORMAL) Lipid panel (10/23/2023) [facility] LDL/HDL Ratio 4 0 - 4 Triglycerides 223(A) 0 - 150 mg/dL Cholesterol 274(A) 0 - 200 mg/dL HDL 66 >=40 mg/dL LDL Cholesterol 164(A) 0 - 100 mg/dL Blood Venous blood specimen / Unknown Result [facility] Provider LAB BLOOD ORDERABLES Rama l Result * Cervical Cancer Screening: HPV (02/26/2021) [facility] Cervical Cancer Screening: HPV abstracted, negative Result [facility] Provider HEALTH MAINTENANCE Final Result * Hepatitis C Screening (12/08/2012) [facility] Hepatitis C Screening abstracted Result [facility] Provider HEALTH MAINTENANCE Final Result from Last 3 Months or Most Recently Relevant to Health Maintenance Insurance [employer] MEDICARE ADVANTAGE on file MEDICAID - [place] Care Teams Title Checker Relationship Specialty Start Date End Date Lynsey Nagel MD [address] [place] [phone] PCP - General Internal Medicine 04/04/1997
== END 2024-08-10 13:46 | disposition home or self-care (01) ==
PROVIDERS: PCP Internal Medicine; Visit Provider Physician Assistant Surgical
DX: E66.813 Obesity, class 3 (principal); Z68.42 Body mass index [BMI] 45.0-49.9, adult; Z90.3 Acquired absence of stomach [part of]; Z98.84 Bariatric surgery status
CPT/HCPCS: 99214; G2211

== ENCOUNTER → 2024-08-10 12:38 | Outpatient (BNVA) | payer MEDICARE, SELFPAY | PROVIDERS: PCP Internal Medicine; Visit Provider Physician Assistant Surgical ==

== ENCOUNTER 2024-08-13 08:26 | Outpatient (REF) | payer MEDICARE, SELFPAY ==
--- OUTSIDE RECORDS SUMMARY | 2024-08-13 08:38 | XMS_ITS | Clinical Summary ---
Author Organization [facility] [address] [facility] Address [address] [facility] [place] [address] Phone Care Team Providers Care Adjunct History Instructor Name Role Phone Lynsey Nagel MD Primary Care Provider [phone] Allergies No known active allergies Medications citalopram (CeleXA) 10 mg tablet TAKE 1 TABLET DAILY ALONG WITH A 20 MG TABLET FOR A TOTAL OF 30 MG DAILY 03/15/2024 Active baclofen (LIORESAL) 10 mg tablet Take 1 tablet (10 mg total) by mouth 2 (two) times a day. 03/15/2024 Active lisinopriL (PRINIVIL,ZESTR IL) 10 mg [...] Encounters Date Type Department Care Team Description 08/12/2024 Telephone Gastroenterology - [place] [address] [facility] [address] [place] [address] MD special procedure 06/15/2024 10:51 AM EST - 06/15/2024 11:59 PM EST Hospital Encounter [address] [phone] Osteoarthritis of spine with radiculopathy, lumbar region Discharge Disposition: Home or Self Care 06/15/2024 10:30 AM EST Office Visit [facility] - [address] [phone] Enriqueta Fajardo PA Osteoarthritis of spine with radiculopathy, lumbar region (Primary Dx); Severe obesity (CMS/HCC); S/P bariatric surgery; Gastroesophageal reflux disease, unspecified whether esophagitis present; Primary hypertension 06/10/2024 2:50 PM EST - 06/10/2024 11:59 PM EST Hospital Encounter Radiology Department - [address] [phone] Encounter for screening mammogram for breast cancer [...] lasix eye correction OTHER SURGICAL HISTORY 06/06/14 [facility] PROCEDURE: COLON CA SCRN NOT HI RSK [...] obesity with BMI o f 50.0-59.9, adult ([facility]) Bariatric surgery status 03/16/2021 DX:Lencho [...] for your loved ones. For example, child welfare manager or elderly care for an older adult? [...] Oxygen Concentration - - Weight 134 kg (296 lb) 08/11/2024 11:00 AM EDT Height 170.2 cm (5' 7 ) 08/11/2024 11:00 AM EDT Body Mass Index 46.36 08/11/2024 11:00 AM EDT Plan of Treatment Upcoming Encounters Date Type Department Care Team (Late st Contact Info) Description 08/18/2024 12:00 PM EDT Hospital Encounter [facility] Endoscopy [address] [place] [phone] [address] MD [address] [facility] [address] [place] [address] 08/30/2024 3:30 PM EDT Office Visit Adult Medicine [facility] [address] [place] [address] Lynsey Nagel MD [address] [place] [address] Health Maintenance Due Date Last Done Comments [...] HPV 02/26/2026 02/26/2021 Breast Cancer Screening 06/10/2026 06/10/19 25, 06/09/2023, 06/06/2022, Additional history exists Cholesterol Screening [...] Osteoarthritis of spine with radiculopathy, lumbar region MG MAMMO DIGITAL SCREENING W BRIAN BILAT Routine [...] Signed Date: 06/15/2024 11:45 ET Workstation ID: [id number] Transcribed By: Self Edit Transcribed Date: 06/15/2024 [...] Signed Date: 06/15/2024 11:45 ET Workstation ID: [id number] Transcribed By: Self Edit Transcribed Date: 06/15/2024 11:44 ET Enriqueta GRIMM IMG XR PROCEDURES Final Result [...] is recommended in 1 year. MAMMO LOCATION: [facility], [address] [place] [address], [phone], . -------- FINAL REPORT -------- Dictated By: Chely Fernandez Dictated Date: 06/11/2024 12:59 ET Assigned Physician: Chely Fernandez Reviewed and Electronically Signed By: Chely Fernandez Signed Date: 06/11/2024 13:00 ET Workstation ID: [id number] Transcribed By: Self Edit Transcribed Date: 06/11/2024 [...] is recommended in 1 year. MAMMO LOCATION: [facility], [address] [place] [address], [phone], . -------- FINAL REPORT -------- Dictated By: Chely Fernandez Dictated Date: 06/11/2024 12:59 ET Assigned Physician: Chely Fernandez Reviewed and Electronically Signed By: Chely Fernandez Signed Date: 06/11/2024 13:00 ET Workstation ID: [id number] Transcribed By: Self Edit Transcribed Date: 06/11/2024 12:59 ET Result [facility] Lynsey Nagel MD IMG BI PROCEDURES Final Result * Annual BMP Blood Test (10/23/2023) [facility] Annual BMP Blood Test abstracted Result [facility] Provider HEALTH MAINTENANCE Final Result * (ABNORMAL) Lipid panel (10/23/2023) [facility] LDL/HDL Ratio 4 0 - 4 Triglycerides 223(A) 0 - 150 mg/dL Cholesterol 274(A) 0 - 200 mg/dL HDL 66 >=40 mg/dL LDL Cholesterol 164(A) 0 - 100 mg/dL Blood Venous blood specimen / Unknown Result [facility] Provider LAB BLOOD ORDERABLES Rama l Result * Cervical Cancer Screening: HPV (02/26/2021) [facility] Cervical Cancer Screening: HPV abstracted, negative Result [facility] HEALTH MAINTENANCE Final Result * Hepatitis C Screening (12/08/2012) [facility] Hepatitis C Screening abstracted us Historical Provider HEALTH MAINTENANCE Final Result from Last 3 Months or Most Recently Relevant to Health Maintenance Insurance [employer] MEDICARE ADVANTAGE on file MEDICAID - [place] Care Teams Adjunct History Instructor Relationship Specialty Start Date End Date Lynsey Nagel MD [address] [place] [phone] PCP - General Internal Medicine 04/04/1997
--- OUTSIDE RECORDS SUMMARY | 2024-08-13 08:39 | XMS_ITS | Encounter Summary ---
Author Organization [facility] Address [address] [place] [address] Care Team Providers Care Cosmetic Dentist Name Role Phone Lynsey Nagel MD Primary Care Provider [phone] Reason for Visit * Reason Onset Date Comments special procedure 08/12/2024 Encounter Details Date Type Department Care Team (Late st Contact Info) Description 08/12/2024 Telephone Gastroenterology - [place] [address] [facility] [address] [place] [address] MD [address] [facility] [facility] [address] [place] [address] special procedure Social History Tobacco Use Types Packs/Day Years Used Date Smoking Tobacco: Never Smokeless Tobacco: Never Alcohol Use Standard Drinks/Week Comments No 0 [...] care for your loved ones. For example, early childhood worker or elderly care for an older adult? [...] Orientation Straight 05/29/2024 6: 31 AM EST documented as of this encounter Progress Notes * Yuko Rm - 08/12/2024 4:09 PM EDT Patient calling to reschedule colonoscopy 08/[address] as patient no longer has a ride. documented in this encounter Plan of Treatment Upcoming Encounters Date Type Department Care Team (Late st Contact Info) Description 08/18/2024 12:00 PM EDT Hospital Encounter [facility] [address] [place] [address] Onel tS MD [address] [facility] [address] [place] [address] 08/30/2024 3:30 PM EDT Office Visit Adult Medicine [facility] [address] [place] [address] Lynsey Nagel MD [address] [place] [address] documented as of this encounter Visit Diagnoses Not on filedocumented in this encounter Additional Health Concerns Assessment Noted Time PHQ-9 Depression Total Score: 10 025 9:53 AM EST documented as of this encounter Care Teams Cosmetic Dentist Relationship Specialty Start Date End Date Lynsey Nagel MD [address] [place] [id number] PCP - General Internal Medicine 04/04/1997 documented as of this encounter
[2024-08-13 10:01] LABS: MANUAL DIFF FLAG NO
[2024-08-13 10:06] LABS: Basophils Absolute Auto 0.1 X10*3/uL (0.0-0.2); Eosinophils Absolute Auto 0.1 X10*3/uL (0.0-0.4); Eosinophils Percent Auto 2.4 % (0-4); Hematocrit 42.8 % (37.0-47.0); Imm Gran Abs Auto 0.01 X10*3/uL (0.00-0.03); Imm Gran Pct Auto 0.2 % (0.0-0.4); Lymphocytes Absolute Auto 1.1 X10*3/uL (1.2-4.9); Lymphocytes Percent Auto 21.5 % (20-40); Mean Corpuscular HGB Conc 32.7 g/dl (31.0-35.0); Mean Corpuscular Hemoglobin 27.9 pg (27.0-33.0); Mean Corpuscular Volume 85.3 fL (80.0-98.0); Mean Platelet Volume 10.7 fL (9.4-12.3); Monocytes Absolute Auto 0.4 X10*3/uL (0.1-1.2); Monocytes Percent Auto 7.6 % (2-11); Neutrophils Absolute Auto 3.4 x10*3/uL (2.0-8.3); Neutrophils Percent Auto 67.3 % (45-73); Platelet Count 272 X10*3/uL (160-400); Red Blood Count 5.02 X10*6/uL (4.20-5.50); Red Cell Distribution Width 12.7 % (11.0-16.0)
[2024-08-13 10:12] LABS: Estimated Average Glucose 97 mg/dL; Hemoglobin A1C 114.6741 umol/L
[2024-08-13 10:42] LABS: Alanine Aminotransferase 12 U/L (0-31); Albumin Level 4.1 g/dL (3.5-5.0); Alkaline Phosphatase 114 U/L (39-117); Anion Gap 12 (12-20); Aspartate Amino Transferase 17 U/L (5-31); Bilirubin Total 0.4 mg/dL (0.0-1.0); Blood Urea Nitrogen 16 mg/dL (9-16); C Reactive Protein 0.39 mg/dL (< or = 0.50); Calcium 9.3 mg/dL (8.4-10.2); Carbon Dioxide 26 mmol/L (22-29); Chloride 107 mmol/L (96-108); Cholesterol 259 mg/dL (<200); Estimated Glomerular Filt Rate > 60; Glucose Random 93 mg/dL (60-115); HDL Cholesterol 65 mg/dL (>40); Iron 59 mcg/dL (30-160); LDL Cholesterol Calculated 166 mg/dL (<100); Percent Iron Saturation 21 % (15-50); Potassium 4.1 mmol/L (3.3-5.1); Sodium 141 mmol/L (135-145); Total Iron Binding Capacity 275 mcg/dL (228-428); Total Protein 7.4 g/dL (6.5-8.0); Triglycerides 144 mg/dL (<150); Unsaturated Iron Binding 216 ug/dL
[2024-08-13 11:02] LABS: Folate 10.7 ng/mL (> or = 4.0); Vitamin B12 294 pg/mL (200-900)
[2024-08-13 11:11] LABS: Ferritin 123 ng/mL (10-250); TSH reflex Free T4 2.93 uIU/mL (0.32-4.0); Vitamin D 25-OH Total 36.3 ng/mL (>30)
[2024-08-13 11:27] LABS: Insulin 18 uU/mL (2-29)
[2024-08-17 03:54] LABS: Zinc 68 mcg/dL (60-130)
[2024-08-18 00:14] LABS: Vitamin A 72 mcg/dL (38-98)
[2024-08-22 11:44] LABS: Vitamin B1 11 nmol/L (8-30)
== END 2024-08-13 08:27 | disposition home or self-care (01) ==
LOC: HO.HMGCLDS 08:26
PROVIDERS: PCP Internal Medicine; Visit Provider Physician Assistant Surgical
DX: Z98.84 Bariatric surgery status (principal); E51.9 Thiamine deficiency, unspecified; E55.9 Vitamin D deficiency, unspecified; I10 Essential (primary) hypertension; E78.5 Hyperlipidemia, unspecified; K76.0 Fatty (change of) liver, not elsewhere classified
CPT/HCPCS: 36415; 80053; 80061; 82306; 82607; 82728; 82746; 83036; 83525; 83540; 84425; 84443; 84590; 84630; 85025; 86140

== ENCOUNTER 2024-10-18 13:30 | Outpatient (AMB) | payer MEDICARE, SELFPAY ==
--- NOTE | 2024-09-24 11:25 | MHC.OFFVISWM ---
Intake Visit Reasons: (TV) PO LSG 02/13/21 *GLP-1* Allergies No Known Allergies [No Known Allergies*] Allergy (Verified 08/10/24 13:03) HPI Comments Details: This?a?59?yo female who is s/p LSG without hiatal hernia repair on?02/13/2021. Presents for 3 year 6 month post op visit. She was last seen in the office in 10/19/2022 with a weight of 248.4 lb. Weight today is 296 pounds, with a BMI of 46.4. There has been a 39 pound weight loss,(initial weight 335 pounds) since starting the program on 12/13/2020 reflecting a 11.6% total body weight loss and a weight loss of 7.6 pounds since surgery (operative weight 303.6 pounds) reflecting a 0.02% TBWL since surgery. No complaints of nausea, emesis, abdominal pain or reflux. Reports infrequent but normal bowel movements everyday. She states that she is no longer taking her lisinopril or hydrochlorothiazide. She is not doing this under the direction of a physician but rather wanted to see if she still has hypertension. She states that she is checking her blood pressure at home daily in the morning, 130s/80s. She has not been seen in the office in 2 years as she had been embarrassed regarding her weight regain. Present meal plan includes: nothing formal ? Exercise routine includes: none membership at [email or web address] in [facility] Medical History Liver fibrosis Steatosis, liver GERD (gastroesophageal reflux disease) Hyperlipidemia Depression DJD (degenerative joint disease) Hypertension Asthma Morbid obesity Surgical History Hx of total knee replacement History of sleeve gastrectomy Hx of LASIK Hx of wisdom tooth extraction Hx of cholecystectomy Hx of colonoscopy Family History Mother No problems noted. Father No problems noted. Brother No problems noted. Brother No problems noted. Brother Diabetes Sister No problems noted. Sister No problems noted. Sister No problems noted. Sister No problems noted. Son No problems noted. Daughter No problems noted. Social History Household Members: Spouse Household Members Other:: 2 Housing: House Are you a primary morning caregiver to a significant other at home: No Do you presently have visiting nurse or other home services: No Alcohol intake: former Patient Tobacco Use Status: Never used Tobacco Second Hand Smoke Exposure: No service: No Current occupational status: unemployed
--- NOTE | 2024-10-18 10:10 | A.OFFVIS_ITS ---
VS Expanded 10/18/24 10:11 Height 5 ft 7 in Weight 301 lb 4 oz BMI 47.2 Body Fat % 56.2 Fat Free Mass 132 Visceral Fat Rating 29 Body Water % 31.6 Muscle Mass/Score 125.4 Basal Metabolic Rate/Score 1,665 Intake Visit Reasons: (TV) PO LSG 02/13/21 *GLP-1* Transport Specialist Required: No Allergies No Known Allergies [No Known Allergies*] Allergy (Verified 08/10/24 13:03) Medication List - Last Reconciled 10/18/24 by SIRISHA Sidhu acetaminophen ER 650 mg PO Q8H PRN albuterol sulfate 90 mcg/actuation 2 puffs inhalation Q6H PRN baclofen mg PO clotrimazole 1% 1 appl topical BID cyanocobalamin (vitamin B-12) (Vitamin B-12) 500 mcg PO DAILY famotidine mg PO HPI Comments Details: This?a?59?yo female who is s/p LSG without hiatal hernia repair on?02/13/2021. Presents for 3 year 8 month post op visit. She was last seen in the office 08/10/24 with a weight of 296 lb. with a BMI of 46.4. Weight today is 301.4 lb with a BMI of 47.9. There has been a 33.9 pound weight loss,(initial weight 335 pounds) since starting the program on 12/13/2020 reflecting a 10.2% total body weight loss and a weight loss of 2.2 pounds since surgery (operative weight 303.6 pounds) reflecting a 0.007% TBWL since surgery. No complaints of nausea, emesis, abdominal pain or reflux. Reports infrequent but normal bowel movements everyday. She states that she is no longer taking her lisinopril or hydrochlorothiazide. She is not doing this under the direction of a physician but rather wanted to see if she still has hypertension. She states that she is checking her blood pressure at home daily in the morning, 130s/80s. She states she went to the right bmi and then stopped after a week. She states she has too many issues now personally and keeps everything in. She has a BH therapist but only every 2 weeks. She has the supplies at home. Didn't join the gym. She had PCP appointment a few weeks ago and cholesterol profile was addressed but was not started on anything. Present meal plan includes: did right bmi meal plan for 1 week, then nothing formal ? Exercise routine includes: none had membership at [employer] in [facility] Medical History Liver fibrosis Steatosis, liver GERD (gastroesophageal reflux disease) Hyperlipidemia Depression DJD (degenerative joint disease) Hypertension Asthma Morbid obesity Surgical History Hx of total knee replacement History of sleeve gastrectomy Hx of LASIK Hx of wisdom tooth extraction Hx of cholecystectomy Hx of colonoscopy Family History Mother No problems noted. Father No problems noted. Brother No problems noted. Brother No problems noted. Brother Diabetes Sister No problems noted. Sister No problems noted. Sister No problems noted. Sister No problems noted. Son No problems noted. Daughter No problems noted. Social History Household Members: Spouse Household Members Other:: 2 Housing: House Are you a primary healthcare advisory services manager to a significant other at home: No Do you presently have visiting nurse or other home services: No Alcohol intake: former Patient Tobacco Use Status: Never used Tobacco Second Hand Smoke Exposure: No service: No Current occupational status: unemployed Telehealth Telehealth Telehealth Platform: Telephone Location of provider rendering services: practice address Location of patient: address on file Patient Identification confirmed using: Name, : Yes Telehealth method: voice only Patient verbally consented to treatment: Yes Patient verbally consented to billing insurance company: Yes Patient informed of any privacy concerns related to visit: Yes Minutes spent on Phone/Video with Pt.: 15 Assessment & Plan Assessment & Plan (1) S/P laparoscopic sleeve gastrectomy: Code(s): Z98.84 - Bariatric surgery status Category: Surgical Plan: Discussed the importance of following the meal plan and exercise plan. Patient at times was tearful during the appointment. She states that she is seeing her behavioral health therapist this Friday. Discussed options including possibly seeing her therapist weekly instead of biweekly, joining the gym, identifying strategies to address acute anxiety with her behavioral health therapist aside from eating. She states that she is 70 causing herself. Encouraged to at least put the meal plan back in place. We will have her return to the office in a proximally 4-6 weeks. Encouraged to text weekly with weight and with any questions or concerns.
[2024-10-18 10:11] VITALS: BMI 47.2
--- OUTSIDE RECORDS SUMMARY | 2024-10-18 13:40 | XMS_ITS | Encounter Summary ---
Author Organization [facility] Address [address] [place] [address] Care Team Providers Care Licensed Insurance Sales Agent Name Role Phone Lynsey Nagel MD Primary Care Provider [phone] Encounter Details Date Type Department Care Team (Late st Contact Info) Description 09/14/2024 Billing Patient Not Present Adult Medicine [facility] [address] [place], [place] [phone] Lynsey Nagel MD [address] [place], [place] Social History Tobacco Use Types Packs/Day Years Used Date Smoking Tobacco: Never Smokeless Tobacco: Never Alcohol Use Standard Drinks/Week Comments No 0 (1 standard drink = 0.6 oz pur e alcohol) Housing Instability Answer Date Recorde d Are you worried that in the next 2 months you may not have stable housing? No 08/23/2024 Food Access & Nutrition Answer Date Rec orded Do you have access to a vari ety of food including fruits and vegetables? Yes 08/23/2024 Access to Healthcare Answer Date Record ed Within the last 3 months, ho w many times did you visit the emergency department for your medical care? 0 08/23/2024 Health Literacy Answer Date Recorded How often do you need to hav e someone help you when you read instructions, pamphlets, or other written material from your doctor or pharmacy? Never 08/23/2024 Caregiver: How often do you need to have someone help you when you read instructions, pamphlets, or other written material from your doctor or pharmacy? Not on file 08/23/2024 Financial Risk Answer Date Recorded How hard is it for you to pa y for the very basics like food, housing, medical care, and air conditioning / heating? Not very hard 08/23/2024 Transportation Answer Date Recorded Has the lack of transportati on kept you from meetings, work, or from getting things needed for daily living? No Has the lack of transportati on kept you from medical appointments or from getting medications? No 08/23/2024 Social Isolation Answer Date Recorded How often do you feel lonely or isolated from those around you? Sometimes 08/23/2024 Food Risk Answer Date Recorded Within the past 12 months we worried whether our food would run out before we got money to buy more. Never true 08/23/2024 Within the past 12 months th e food we bought just didn't last and we didn't have money to get more. Never true 08/23/2024 Dependent Care Answer Date Recorded Do you need help finding or paying for care for your loved ones. For example, child development associate teacher or elderly care for an older adult? No 08/23/2024 Education Answer Date Recorded Do you think completing more education or training, like finishing a GED, going to college, or learning a trade, would be helpful for you? N/A 08/23/2024 Employment and Income Answer Date Recor ded During the last four weeks, have you been actively looking for work? No 08/23/2024 Living Situation Answer Date Recorded What is your living situation? 0 08/23/2024 Comments No Sex and Gender Information Value Date Recorded Sex Assigned at Female 05/29/2024 6:31 AM EST Legal Sex Female 2:26 AM EST Gender Identity Female 05/29/2024 6:31 AM EST Sexual Orientation Straight 05/29/2024 6: 31 AM EST documented as of this encounter Plan of Treatment Upcoming Encounters Date Type Department Care Team ([facility] Contact Info) Description 03/02/2025 10:15 AM EDT Office Visit Adult Medicine [address] [place] [address] Enriqueta Fajardo [place] [address] [place] [address] documented as of this encounter Visit Diagnoses Not on filedocumented in this encounter Additional Health Concerns Assessment Noted Time PHQ-9 Depression Total Score: 8 08/24/19 25 11:17 AM EDT documented as of this encounter Care Teams Licensed Insurance Sales Agent Relationship Specialty Start Date End Date Lynsey Nagel MD [address] [place] [address] PCP - General Internal Medicine 04/04/1999 documented as of this encounter
--- OUTSIDE RECORDS SUMMARY | 2024-10-18 13:40 | XMS_ITS | Clinical Summary ---
Author Organization [facility] Address [address] [place] [address] Phone Care Team Providers Care Gravel Wheeler Name Role Phone Lynsey Nagel MD Primary Care Provider [phone] Allergies No known active allergies Medications cyanocobalamin (VITAMIN B-12) 500 mcg tablet 03/08/20 24 Active amoxicillin (AMOXIL) 500 mg tablet Take 4 Tablets by mouth Once. Take 1 hour prior to dental procedure. 01/08/20 24 Active albuterol HFA (Ventolin HFA) 90 mcg/actuation inhaler INHALE 2 PUFFS INTO THE LUNGS EVERY 4 HOURS NEEDED FOR COUGH OR WHEEZING. 07/30/19 24 Active clotrimazole (LOTRIMIN) 1 % cream 01/14/20 23 Active acetaminophen (TYLENOL ORAL) Take 650 mg by mouth every 8 (eight) hours if needed (pain). Active famotidine (PEPCID) 20 mg tablet TAKE 1 TABLET BY MOUTH 2 TIMES DAILY. 30 MINS PRIOR TO MEAL 180 tablet 1 06/15/19 25 Active polyethylene glycol (Golytely) 236-22.74-6.74 -5.86 gram solution Take 4L by mouth once for one dose. May substitue any PEG. Starting at 6PM the night before your procedure drink 1 8oz glasses at your own pace until you complete half of the gallon. Finish 2nd half of the gallon 5 hours before your procedure. 4000 mL 09/28/19 25 Active bisacodyL (DULCOLAX) 5 mg EC tablet Take 2 tablets by mouth right before beginning bowel prep. See instructions provided by the office 2 tablet 09/28/19 25 Active baclofen (LIORESAL) 10 mg tablet TAKE 1 TABLET BY MOUTH AT BEDTIME NEEDED (MUSCLE PAIN/SPASM). 90 tablet 1 10/14/19 25 Active baclofen (LIORESAL) 10 mg tablet Take 1 tablet (10 mg total) by mouth 2 (two) times a day. 03/15/20 24 025 Discontinued Active Problems Problem Noted Date Diagnosed Date Low back pain 08/30/2024 S/P bariatric surgery 06/15/2024 Gastroesophageal reflux disease 06/15/2024 Severe obesity (CMS/HCC V24, CMS/HCC V28) 2023 Electrical shock sensation 09/05/2023 Overview (05/12/2024): Labs [...] Encounters Date Type Department Care Team Description 10/12/2024 Telephone Gastroenterology - [address] [facility] [address] [place] [phone] Yasmin Cohen MA Results 10/11/2024 12:46 PM EDT Anesthesia Event [facility] Endoscopy [address] [place] [address] Jordan Calle DO 10/11/2024 12:25 PM EDT - 10/11/2024 11:59 PM EDT Hospital Encounter [facility] Endoscopy [address] [place] [phone] Galileo Hager MD Chang, Ling, CRNA Korobkov, Vitaliy, DO Colon cancer screening Discharge Disposition: Home or Self Care 09/14/2024 Billing Patient Not Present Adult Medicine [address] [phone] Lynsey Nagel MD 08/30/2024 3:30 PM EDT Office Visit Adult Medicine [address] [phone] Lynsey Nagel MD Primary hypertension (Primary Dx); Other hyperlipidemia; B12 deficiency; Gastroesophageal reflux disease without esophagitis 08/12/2024 Telephone Gastroenterology - [place] [facility] [address] [facility] [address] [place] [address] MD special procedure from Last 3 Months Immunizations Name Administration Dates Next Due Influenza trivalent, 0.5mL, preservative free (Fluarix; FluLaval; Fluzone) ages 6mo and older (Afluria) 3 years and older 04/28/2013,04/16/2012 Pfizer (age 5-11) Bivalent, COVID-19 08/26/2021 Pfizer SARS-CoV-2 COVID-19, mRNA, LNP-S, preservative free 03/09/2021 Tdap Tetanus diptheria acell ular pertussis (Boostrix; Adacel) 7yo and older 08/30/2022,04/16/2012 Surgical History Surgery Date Site/Laterality Comments CHOLECYSTECTOMY EYE SURGERY : lasix eye correction OTHER SURGICAL HISTORY 06/06/14 [facility] colonoscpy tics and hemorrhoids; repeatin ten yrs OTHER SURGICAL HISTORY 01/2021 : gastric sleeve TOTAL KNEE ARTHROPLASTY 04/2022 Left HIP ARTHROPLASTY 11/2021 Right TOTAL KNEE ARTHROPLASTY 07/2022 Right Medical History Medical History Date Comments Hyperlipidemia 12/12/2012 Hypertension 07/16/2011 B12 deficiency 11/24/2018 Morbid obesity with BMI of 5 0.0-59.9, adult (CMS/HCC V24, CMS/HCC V28) 12/26/2020 Bariatric surgery status 03/16/202102/20 ga stric sleeve History of hip replacement 07/12/202212/21 right THR Low back pain 08/30/2024 Family History Medical History Relation Name Comments [...] Record ed Within the last 3 months, dilip romo many times did you visit the emergency [...] for your loved ones. For example, child life assistant or elderly care for an older adult? [...] What is your living situation? 0 08/23/2024 Interpersonal Safety Answer Date Record ed Physical Abuse 10/11/2024 Verbal Abuse 10/11/2024 Comments No Sex and Gender Information Value [...] Sign Reading Time Taken Comments Blood Pressure 122/61 10/11/2024 1:27 PM EDT Pulse 61 10/11/2024 1:27 PM EDT Temperature 36.1 ??C (97 ??F) 10/11/2024 1:07 PM EDT Respiratory Rate 19 10/11/2024 1:27 PM EDT Oxygen Saturation 98% 10/11/2024 1:27 PM EDT Inhaled Oxygen Concentration - - Weight 135 kg (298 lb) 10/11/2024 12:39 PM EDT Height 170.2 cm (5' 7 ) 10/11/2024 12:39 PM EDT Body Mass Index 46.67 10/11/2024 12:39 PM EDT Plan of Treatment Upcoming Encounters Date Type Department Care Team (Late st Contact Info) Description 03/02/2025 10:15 AM EDT Office Visit Adult Medicine [facility] [address] [place] [phone] Enriqueta Fajardo PA [address] [place] [address] Health Maintenance Due Date Last Done Comments Pneumococcal Vaccine: 50+ Years (1 of 2 - PCV) 08/07/1982 Pneumococcal Vaccine: Pediatrics (0 to 5 Years) and At-Risk Patients (6 to 64 Years) (1 of 2 - PCV) 08/07/1982 Zoster Vaccines (1 of 2) 08/07/2013 HIV Screening 05/11/2022 Medicare Annual Wellness Visit 05/11/2022 RSV Immunization Adult Patients (1 - Risk 60-74 years 1-dose series) 2023 COVID-19 Vaccine (2 - season) 2024 08/26/2021, 03/09/2021 Hypertension/CHF/CAD Annual BMP Blood Test 10/22/2024 10/23/2023, 10/23/2023 Influenza Vaccine (Season Ended) 2025 04/28/2013, 04/16/2012 Depression Screening 08/23/2025 08/23/2024 Social Influencers of Health Screening 08/23/2025 08/23/2024 Cervical Cancer Screening: HPV 02/26/2026 02/26/2021 Breast Cancer Screening 06/10/2026 06/10/19 25, 06/09/2023, 06/06/2022, Additional history exists Cholesterol Screening (Lipid Panel) 10/22/2028 10/23/2023, 10/23/2023 DTaP,Tdap,and Td Vaccines (3 - Td or Tdap) 08/30/2032 08/30/2022, 04/16/2012 Colorectal Cancer Screening: Colonoscopy 10/11/2034 10/11/2024 Hepatitis C Screening Completed 12/08/2012 HIB Vaccines [...] age to complete this topic Meningococcal B Vaccine Aged Out No l onger eligible based on patient's age to complete this topic RSV Immunization Patients Under 20 months Aged Out No longer eligible based on patient's age to complete this topic Varicella Vaccines Aged Out No longer eligible based on patient's age to complete this topic Medical Devices Implanted Type Area Gate Mortiser Operator Device Identifier Shelf Expiration Date Model / Serial / Lot Replacement Bilateral: Knee Replacement Right: Hip Procedures Procedure Name Priority Date/Time Associated Diagnosis Comments COLONOSCOPY Routine 10/11/2024 1:06 PM EDT Colon cancer screening TISSUE EXAM Routine 10/11/2024 1:04 PM EDT Colon cancer screening MG MAMMO DIGITAL SCREENING W BRIAN BILAT Routine 06/10/2024 3:04 PM EST Encounter for screening mammogram for breast cancer ANNUAL BMP BLOOD TEST Routine 10/23/2023 LIPID PANEL Routine 10/23/2023 HPV Routine 02/26/2021 HEPATITIS C SCREENING Routine 12/08/2012 from Last 3 Months or Most Recently Relevant to Health Maintenance Results * COLONOSCOPY Anesthesia - MAC; [facility] ENDOSCOPY (10/11/2024 1:06 PM EDT) Anatomical Region Laterality Modality Endoscopy 10/11/2024 12:5 4 PM EDT Impressions 10/11/2024 1:08 PM EDT - Diverticulosis in the sigmoid colon. ? - One 5 mm polyp in the mid rectum, removed with a ? cold snare. Resected and retrieved. ? - The examination was otherwise normal on direct and ? retroflexion views. Recommendation: ?- Repeat colonoscopy for surveillance based on ? pathology results. Narrative 10/11/2024 1:08 PM EDT [facility] GI Patient Name: Charline Stallings Procedure Date: 10/11/2024 12:54 PM Date of : 1965 Age: 59 Room: ROOM 15 Gender: Female Note Status: Finalized Attending MD: Galileo Hager MD, Procedure Date No Time: 10/11/2024 Procedure: ? Colonoscopy Indications: ? Screening for colorectal malignant neoplasm Providers: ? Galileo Hager MD Referring MD: ?Onel St MD Medicines: ? Propofol per Anesthesia Complications: ? No immediate complications. Estimated Blood Loss: ? Estimated blood loss: none. Procedure: ? Pre-Anesthesia Assessment: ? - ASA Grade Assessment: III - A patient with severe ? systemic disease. ? After I obtained informed consent, the scope was ? passed under direct vision. Throughout the procedure, ? the patient's blood pressure, pulse, and oxygen ? saturations were monitored continuously.The Olympus ? Colonoscope was introduced through the anus and ? advanced to the cecum, identified by appendiceal ? orifice and ileocecal valve. The colonoscopy was ? performed without difficulty. The patient tolerated ? the procedure well. The quality of the bowel ? preparation was good. Findings: ?The perianal and digital rectal examinations were ? normal. ? Multiple diverticula were found in the sigmoid colon. ? A 5 mm polyp was found in the mid rectum. The polyp ? was sessile. The polyp was removed with a cold snare. ? Resection and retrieval were complete. ? The exam was otherwise without abnormality on direct ? and retroflexion views. Procedure Code(s): ? --- Professional --- ? 82272, Colonoscopy, flexible; with removal of ? tumor(s), polyp(s), or other lesion(s) by snare ? technique Diagnosis Code(s): ? --- Professional --- ? Z12.11, Encounter for screening for malignant neoplasm ? of colon ? D12.8, Benign neoplasm of rectum ? K57.30, Diverticulosis of large intestine without ? perforation or abscess without bleeding CPT copyright 2020 [employer]. All rights reserved. The codes documented in this report are preliminary and upon sales engagement executive review may be revised to meet current compliance requirements. Galileo Hager MD 10/11/2024 1:08:15 PM This report has been signed electronically.Galileo Hager MD Number of Addenda: 0 Note Initiated On: 10/11/2024 12:54 PM Scope In: Scope Out: ? Endoscopy Department at [facility] - [address] [place] [address], ? [place] [address] Procedure Note Galileo Hager MD - 10/11/2024 [facility] GI Patient Name: Charline Stallings Procedure Date: 10/11/2024 12:54 PM Date of : 1965 Age: 59 Room: ROOM 15 Gender: Female Note Status: Finalized Attending MD: Galileo Hager MD, Procedure Date No Time: 10/11/2024 Procedure: Colonoscopy Indications: Screening for colorectal malignant neoplasm Providers: Galileo Hager MD Referring MD: Onel St MD Medicines: Propofol per Anesthesia Complications: No immediate complications. Estimated Blood Loss: Estimated blood loss: none. Procedure: Pre-Anesthesia Assessment: - ASA Grade Assessment: III - A patient with severe systemic disease. After I obtained informed consent, the scope was passed under direct vision. Throughout theprocedure, the patient's blood pressure, pulse, and oxygen saturations were monitored continuously.The Olympus Colonoscope was introduced through the anus and advanced to the cecum, identified by appendiceal orifice and ileocecal valve. The colonoscopy was performed without difficulty. The patient tolerated the procedure well. The quality of the bowel preparation was good. Findings: The perianal and digital rectal examinations were normal. Multiple diverticula were found in the sigmoidcolon. A 5 mm polyp was found in the mid rectum. The polyp was sessile. The polyp was removed with a coldsnare. Resection and retrieval were complete. The exam was otherwise without abnormality ondirect and retroflexion views. Procedure Code(s): --- Professional --- 29257, Colonoscopy, flexible; with removal of tumor(s), polyp(s), or other lesion(s) by snare technique Diagnosis Code(s): --- Professional --- Z12.11, Encounter for screening for malignantneoplasm of colon D12.8, Benign neoplasm of rectum K57.30, Diverticulosis of large intestine without perforation or abscess without bleeding CPT copyright 2020 [employer]. All rights reserved. The codes documented in this report are preliminary and upon sales engagement executive reviewmay be revised to meet current compliance requirements. Galileo Hager MD 10/11/2024 1:08:15 PM This report has been signed electronically.Galileo Hager MD Number of Addenda: 0 Note Initiated On: 10/11/2024 12:54 PM Scope In: Scope Out: Endoscopy Department at [facility] - [address] [place] [phone] IMPRESSION: - Diverticulosis in the sigmoid colon. - One 5 mm polyp in the mid rectum, removed with a cold snare. Resected and retrieved. - The examination was otherwise normal on directand retroflexion views. Recommendation: - Repeat colonoscopy for surveillance based on pathology results. us Onel St MD GI~PROCEDURE ORDERABLES Fin al Result * Tissue exam (10/11/2024 1:04 PM EDT) Final Diagnosis A. Large Intestine, Rectum, polyp: - Hyperplastic polyp. 10/12/2024 9:13 AM EDT [facility] Gross Description A. Large Intestine, Rectum, polyp: Labeled LI rectum polyp . Received in formalin is a 0.5 cm irregular crow-pink mucosal tissue fragment which is wrapped in paper and submitted in toto in one cassette, one piece, multiple levels on one slide. KLAUS 10/12/2024 9:13 AM EDT [facility] Disclaimer Unless otherwise specified, all tissue is 10% NB formalin fixed and paraffin embedded. 10/12/2024 9:13 AM EDT [facility] Tissue Rectum structure / Unknown 10/11/2024 1:04 PM EDT 10/11/2024 3:03 PM EDT us Galileo Hager MD LAB PATHOLOGY ORDERABLES Fi nal Result [facility] [address] [place] [address], [place] [phone] * MG Mammo Digital Screening w Brian bilat (06/10/2024 3:04 PM EST) Anatomical Region Laterality Modality Breast Bilateral Mammography 06/11/2024 12:5 9 PM EST Impressions 06/11/2024 1:00 PM EST No mammographic evidence of malignancy. BREAST DENSITY: B - There are scattered areas of fibroglandular density. BI-RADS CATEGORY: 1 - NEGATIVE RECOMMENDATION: Screening bilateral mammogram is recommended in 1 year. MAMMO LOCATION: [facility], [address] [place] [address], [id number], . -------- FINAL REPORT -------- Dictated By: Chely Fernandez Dictated Date: 06/11/2024 12:59 ET Assigned Physician: Chely Fernandez Reviewed and Electronically Signed By: Chely Fernandez Signed Date: 06/11/2024 13:00 ET Workstation ID: [id number] Transcribed By: Self Edit Transcribed Date: 06/11/2024 [...] is recommended in 1 year. MAMMO LOCATION: [facility], [address] [place] [address], [id number], . -------- FINAL REPORT -------- Dictated By: Chely Fernandez Dictated Date: 06/11/2024 12:59 ET Assigned Physician: Chely Fernandez Reviewed and Electronically Signed By: Chely Fernandez Signed Date: 06/11/2024 13:00 ET Workstation ID: [id number] Transcribed By: Self Edit Transcribed Date: 06/11/2024 12:59 ET Result [facility] Lynsey Nagel MD IMG BI PROCEDURES Final Result * Annual BMP Blood Test (10/23/2023) [facility] Annual BMP Blood Test abstracted Result [facility] Historical Provider HEALTH MAINTENANCE Final Result * (ABNORMAL) Lipid panel (10/23/2023) [facility] LDL/HDL Ratio 4 0 - 4 Triglycerides 223(A) 0 - 150 mg/dL Cholesterol 274(A) 0 - 200 mg/dL HDL 66 >=40 mg/dL LDL Cholesterol 164(A) 0 - 100 mg/dL Blood Venous blood specimen / Unknown Result [facility] Historical Provider LAB BLOOD ORDERABLES Rama l Result * Cervical Cancer Screening: HPV (02/26/2021) [facility] Cervical Cancer Screening: HPV abstracted, negative Result [facility] Historical Provider HEALTH MAINTENANCE Final Result * Hepatitis C Screening (12/08/2012) [facility] Hepatitis C Screening abstracted Result [facility] Historical Provider HEALTH MAINTENANCE Final Result from Last 3 Months or Most Recently Relevant to Health Maintenance Insurance [facility] MEDICARE ADVANTAGE on file MEDICAID - [place] Care Teams Gravel Wheeler Relationship Specialty Start Date End Date Lynsey Nagel MD [address] [place] [address] PCP - General Internal Medicine 04/04/1997
== END 2024-10-18 13:42 | disposition home or self-care (01) ==
LOC: HO.HBS 13:38
PROVIDERS: PCP Internal Medicine; Visit Provider Physician Assistant Surgical
DX: Z98.84 Bariatric surgery status (principal)
CPT/HCPCS: 99213

== ENCOUNTER → 2024-10-18 13:30 | Outpatient (BNVA) | payer MEDICARE, SELFPAY | PROVIDERS: PCP Internal Medicine; Visit Provider Physician Assistant Surgical | DX: Z98.84 Bariatric surgery status (principal); E51.9 Thiamine deficiency, unspecified; E55.9 Vitamin D deficiency, unspecified; I10 Essential (primary) hypertension; E78.5 Hyperlipidemia, unspecified; K76.0 Fatty (change of) liver, not elsewhere classified ==